=== PATIENT | female | born 1950 | race Caucasian/White ===

== ENCOUNTER → 2018-01-23 15:18 | Outpatient (CLI) | payer MEDICARE, SELFPAY ==
--- NOTE | 2018-01-23 15:24 | HPBI_ITS ---
MAMMOGRAPHY - BILATERAL SCREENING REASON FOR EXAM: Female, 67 years old. Routine annual screening examination. PERTINENT HISTORY: Prior bilateral stereotactic breast biopsies. Prior left excisional breast biopsy. TECHNIQUE: Digital bilateral breast mia (3D mammographic acquisition) in the CC and MLO projections. 2-D mediolateral oblique (MLO) and craniocaudad (CC) views of both breasts were obtained. CAD: Full Field Digital Mammography with Computer Added Detection was performed. COMPARISON: Comparison is made with prior study dated January 02, 2017 and December 14, 2015. FINDINGS: Breast Composition: There are scattered areas of fibroglandular density. There are no dominant masses or suspicious calcifications. Stable 1 cm well-defined nodular density with peripheral calcification in the superior retroareolar region of the left breast. Stable asymmetry of breast tissue when more breast tissue is seen in the superior lateral portion of left breast as compared to the right side. 2 tissue markers are once again seen in the superior retroareolar region of the left breast. Stable calcified fibroadenoma in the axillary portion of the left breast. No other significant abnormalities are identified. There has been no significant change since the prior study. HPBI/SCREENING MAMM (CAD), BILAT IMPRESSION: Stable bilateral screening mammogram. Yearly follow-up mammogram recommended. (A) ASSESSMENT CATEGORY: BIRADS Category 2: Benign. A letter regarding these results will be sent to the patient by the facility within 30 days. Approximately 10% of breast cancers are not detected by mammography. A normal mammogram should not delay biopsy of a clinically suspicious abnormality. [id number] Electronically Signed: Kael Henry MD at 8:11 EDT Tel [phone], Service support ,
== END ==
PROVIDERS: Family Provider Internal Medicine; PCP Internal Medicine; Visit Provider Internal Medicine
DX: Z12.31 Encounter for screening mammogram for malignant neoplasm of breast (principal)
CPT/HCPCS: 77063; 77067

== ENCOUNTER → 2019-03-09 | Outpatient (CLI) | payer MEDICARE, SELFPAY ==
--- NOTE | 2019-03-09 07:57 | BI_ITS ---
MAMMOGRAPHY - BILATERAL SCREENING 3-D TOMOSYNTHESIS REASON FOR EXAM: Female, 68 years old. Bilateral Screening 3-D tomosynthesis PERTINENT HISTORY: No significant family history. TECHNIQUE: 2-D mammograms and 3-D Tomosynthesis of the breast (s) were performed. CAD was performed. COMPARISON: January 23, 2018. FINDINGS: The breast composition is composed of scattered fibroglandular density. Scattered benign calcifications are seen. No dense spiculated masses or suspicious microcalcifications are identified. No architectural distortion is identified. There is no skin thickening or retraction. There has been no significant change since the prior study. BI/SCREENING MAMM (CAD), BILAT IMPRESSION: No mammographic signs of malignancy. Routine yearly mammograms recommended. ASSESSMENT CATEGORY: BIRADS Category 2: Benign. A letter regarding these results will be sent to the patient by the facility within 30 days. FOLLOW UP RECOMMENDATION: Yearly follow up mammogram recommended. (A) Approximately 10% of breast cancers are not detected by mammography. A normal mammogram should not delay biopsy of a clinically suspicious abnormality. Electronically Signed: Bob Gomez MD at 12:20 EDT , Service support ,
== END | disposition home or self-care (01) ==
LOC: OPBI 07:56
PROVIDERS: Family Provider Internal Medicine; PCP Internal Medicine; Referring Provider Internal Medicine; Visit Provider Internal Medicine
DX: Z12.31 Encounter for screening mammogram for malignant neoplasm of breast (principal)
CPT/HCPCS: 77063; 77067

== ENCOUNTER → 2019-08-16 09:45 | Outpatient (CLI) | payer MEDICARE, SELFPAY ==
--- NOTE | 2019-08-16 09:49 | ECHOD_ITS ---
Reason For Study: AV Disorder Procedure This was a 2D Doppler, Color Flow transthoracic echocardiogram. Exam performed in department. Left Ventricle Normal LV size. Left ventricular systolic function is normal. The estimated ejection fraction is 55 %. Stage 2 diastolic dysfunction. No regional wall motion abnormalities noted. Right Ventricle Normal RV size. Normal systolic function. Atria The left atrium is mildly enlarged. Normal right atrium. Mitral Valve Normal mitral valve. Mild (1+) eccentric mitral valve insufficiency. Tricuspid Valve Normal tricuspid valve. Mild (1+) tricuspid valve insufficiency. Pulmonary artery systolic pressure is 34 mmHg. Aortic Valve Trisinus/trileaflet aortic valve. Trivial aortic valve insufficiency. Pulmonic Valve Normal pulmonic valve. Great Vessels Normal aortic root. The pulmonary artery is normal size. Normal inferior vena cava. Pericardium/Pleural No pericardial effusion. MMode/2D Measurements & Calculations LVIDd: 4.4 cm IVSd: 1.1 cm Ao root diam: 2.6 cm LVIDs: 2.8 cm LVPWd: 1.00 cm RVDd: 2.5 cm FS: 37.1 % LAV(MOD-bp): 60.9 ml LVAd ap4: 24.3 cm2 SV(MOD-sp4): 43.3 ml LAV(MOD-bp) Indexed: 33.1 ml/m2 EDV(MOD-sp4): 67.3 ml LAV(MOD-sp2): 50.6 ml EDV(sp4-el): 69.5 ml LAV(MOD-sp4): 69.7 ml LVAs ap4: 12.9 cm2 ESV(MOD-sp4): 24.0 ml ESV(sp4-el): 23.4 ml EF(MOD-sp4): 64.3 % EF(sp4-el): 66.3 % SV(sp4-el): 46.1 ml LA A4 area: 22.0 cm2 LA dimension(2D): 4.4 cm RA A4 area: 11.1 cm2 Doppler Measurements & Calculations MV E max reg: 90.6 cm/sec Lat Peak E' Reg: 10.2 cm/sec Med Peak E' Reg: 7.7 cm/sec MV A max reg: 102.5 cm/sec E/E' lat: 8.9 E/E' med: 11.7 MV E/A: 0.88 Ao V2 max: 190.7 cm/sec AI max reg: 415.2 cm/sec LV V1 max: 134.0 cm/sec Ao max P.5 mmHg AI max P.1 mmHg LV V1 max P.2 mmHg Ao V2 mean: 126.3 cm/sec Ao mean P.2 mmHg AI dec slope: 171.5 cm/sec2 Ao V2 VTI: 43.4 cm AI P1/2t: 709.0 msec PA V2 max: 123.3 cm/sec TR max reg: 272.1 cm/sec TR max P.6 mmHg Interpretation Summary Normal LV size. Left ventricular systolic function is normal. The estimated ejection fraction is 55 %. Stage 2 diastolic dysfunction. Mild (1+) eccentric mitral valve insufficiency. Mild (1+) tricuspid valve insufficiency. Trivial aortic valve insufficiency. Ordering Physician: Irish Bee Referring Physician: Irish Bee Performed By: Micki Braxton, LUZ ELENA, RVT
== END ==
PROVIDERS: Family Provider Internal Medicine; PCP Internal Medicine; Referring Provider Internal Medicine; Visit Provider Internal Medicine
DX: R06.02 Shortness of breath (principal); I35.9 Nonrheumatic aortic valve disorder, unspecified; I34.1 Nonrheumatic mitral (valve) prolapse; G47.33 Obstructive sleep apnea (adult) (pediatric)
CPT/HCPCS: 93306

== ENCOUNTER → 2019-09-21 13:56 | Outpatient (CLI) | payer MEDICARE, SELFPAY ==
--- NOTE | 2019-09-21 14:01 | BD_ITS ---
STUDY: DUAL ENERGY X-RAY ABSORPTIOMETRY / DXA REASON FOR EXAM: Female, 68 years old. Early menopause. Loss of height. TECHNIQUE: Bone Mineral Density (BMD) measurements of lumbar spine and bilateral hips were obtained. COMPARISON: Comparison is made with prior study July 08, 2017. FINDINGS: Lumbar Spine (L1-L4): g/cm2 (1.065) / T-score (-1.1) / Z-score (0.5) Findings are suggestive of osteopenia with a low fracture risk. Increased thoracic kyphosis. Left Femur Total: g/cm2 (0.944) / T-score (-0.5) / Z-score (0.9) Left Femoral Neck: g/cm2 (0.781) / T-score (-1.9) / Z-score (-0.2) Right Femur Total: g/cm2 (0.977) / T-score (-0.2) / Z-score (1.2) Right Femoral Neck: g/cm2 (0.819) / T-score (-1.6) / Z-score (0.1) The T-Scores on the most recent prior examination were: Lumbar Spine (L1-L4): There has been improvement of bone density since the previous examination. Left Femur Total: which represents a worsening of 0.7%. Right Femur Total: which represents a worsening of 0.6%. BD/Dexa Bone Density Study IMPRESSION: The patient is considered osteopenic as outlined below according to World Bharathi Organization (WHO) criteria with a moderate fracture risk. There has been worsening of bone density since the previous examination. Reference Information: The T-score is the number of standard deviations above or below the standard which is normal for young adults at their peak bone mineral density. The World Health Organization (WHO) interprets the T-scores as follows: Above -1 Normal bone density Between -1 and -2.5 Osteopenia Equal to / or below -2.5 Osteoporosis As a practical clinical guideline, osteopenia may be graded as follows: Mild -1 through -1.5 Moderate -1.6 through -2.0 Severe -2.1 through -2.4 The Z-score is the number of standard deviations above or below age-matched controls. A Z-score of less than -1.5 would be considered abnormal. References: 1. NIH Osteoporosis and Related Bone Diseases http://www.osteo.org 2. International Society for Clinical Densitometry http://www.iscd.org 3. National Osteoporosis Foundation http://www.nof.org Electronically Signed: Kael Henry, at 9:37 EST , Service support ,
== END ==
PROVIDERS: Family Provider Internal Medicine; PCP Internal Medicine; Referring Provider Internal Medicine; Visit Provider Internal Medicine
DX: Z78.0 Asymptomatic menopausal state (principal)
CPT/HCPCS: 77080

== ENCOUNTER 2019-10-29 10:19 | Observation (INO) | payer MEDICARE, SELFPAY ==
[2019-10-29 10:20] VITALS: BP 163/90; PULSE 58; RESP 18; TEMP 36.6; O2SAT 99; BMI 34.7
--- NOTE | 2019-10-29 10:50 | CT_ITS ---
STUDY: CT BRAIN WITHOUT CONTRAST REASON FOR EXAM: Female, 68 years old. Nausea. Vertigo. RADIATION DOSAGE (If Supplied By Facility): CTDIvol = ( 44.99 ) mGy, DLP = ( 762.36 ) mGycm TECHNIQUE: Transaxial CT imaging of the brain was performed without administration of intravenous contrast material. Individualized dose optimization techniques were used for this CT. COMPARISON: Comparison is made with prior study dated November 18, 2015. FINDINGS: Normal soft tissue structures. Normal calvarium. There is mild cerebral atrophy with widening of the extra-axial spaces and ventricular dilatation. Focal encephalomalacia in the region of the right temporal lobe suggestive of old ischemic change. Normal basal ganglia and thalami. Normal brainstem. Normal cerebellum. There is no intracranial hemorrhage. There are no findings of an acute ischemic infarction. Partial opacification of the right axillary sinus. CT/Brain/Head without Contrast IMPRESSION: Chronic involutional changes of the brain. Partial opacification of the right maxillary sinus. Electronically Signed: Kael Henry, at 12:34 EST , Service support ,
--- NOTE | 2019-10-29 10:51 | EKG12_ITS ---
Test Reason : DIZZINESS Blood Pressure : / mmHG Vent. Rate : 054 BPM Atrial Rate : 054 BPM P-R Int : 136 ms QRS Dur : 092 ms QT Int : 450 ms P-R-T Axes : 004 020 024 degrees QTc Int : 426 ms Sinus bradycardia Otherwise normal ECG Confirmed by BUZZ MERCADO ([id number]), editorial writer BRENNA KIM ([id number]) on 11/03/2019 1:08:04 PM Referred By: Anay Manzano Confirmed By:BUZZ MERCADO
[2019-10-29 11:33] LABS: Absolute Lymphocyte Count 1.05 X10^3/uL (0.83-4.51); Basophil# 0.01 X10^3/uL; Basophil% 0.1 % (0-1); Eosinophil# 0.03 X10^3/uL; Eosinophils% 0.4 % (0-5); Hematocrit 36.9 % (37-47); Hemoglobin 11.6 g/dL (12.0-15.0); Lymphocyte # 1.05 X10^3/ul (4.0); Mean Corp Hgb Conc 31.4 g/dL (32-36); Mean Corpuscular Hgb 26.5 pg (27.0-32.0); Mean Corpuscular Volume 84.2 fL (81-99); Mean Platelet Vol. 11.2 fl (6.2-12.0); Monocyte# 0.42 X10^3/uL; Monocyte% 5.6 % (0-10); NRBC Flagged by Analyzer 0 % (0-5); Neutrophil # 5.98 X10^3/uL (2.7-7.7); Neutrophil % 79.5 % (47-70); Platelet Count 301 K/mm3 (150-450); RBC Distribution Width CV 15.4 % (11.6-14.6); RBC Distribution Width SD 47.3 fl (35.1-43.9); Red Blood Count 4.38 M/mm3 (4.2-5.4); White Blood Count 7.5 K/mm3 (4.4-11.0)
[2019-10-29 11:50] LABS: Anion Gap 6 (5-15); BUN 11 mg/dL (7-18); BUN/Creat Ratio 18.7 RATIO (10-20); Calcium,Total 9.2 mg/dL (8.5-10.1); Chloride 108 mmol/L (98-107); Creatinine, Serum 0.59 mg/dL (0.55-1.02); EST Glomerular Filtration Rate 108 mL/min (>60); Est Glom Filt Rate - Afr Amer 130 mL/min (>60); Estimated Creatinine Clearance 38.14 ml/min; Glucose 119 mg/dL (74-106); Potassium 3.9 mmol/L (3.5-5.1); Sodium Level 142 mmol/L (136-145)
[2019-10-29] MEDS: Ondansetron 4 MG/2 ML Vial IV (12:03)
[2019-10-29] MEDS: 0.9% Normal Saline 1,000 ML 150 ML IV (12:03)
[2019-10-29] MEDS: Morphine 4 MG/ML Syringe IV (12:04)
[2019-10-29] MEDS: Meclizine HCl 25 MG Tablet PO ×2 (12:04→22:13)
--- NOTE | 2019-10-29 12:41 | ED.DCSUM_ITS ---
- ER Visit Summary Date of Service: 10/29/19 Chief Complaint: Vertigo History of Present Illness: The patient is a [address] Mccray. Reports that at 630 this morning she had the abrupt onset of vertigo when she sat up in bed. She described this as the room spinning. She reports it makes her nause ous and she has had dry heaves. No diaphoresis with this. Is increased with movement or light. She denies any ringing or roaring in her ears. No ear pain. No change in her hearing. No slurred speech or double vision. Denies any focal weakness or numbness. Patient also reports she has a headache is 510 severity that began at the same time. She describes this as a throbbing diffuse pain she has not had similar headaches previously. Physical Examination: Vitals: Stable. Afebrile. General: Well-nourished and well-developed. Head: Normocephalic atraumatic. HEENT: TMs are within normal limits bilaterally. Neck: Supple, no lymphadenopathy. No JVD. Nontender. Cardiovascular: Regular rate and rhythm. No murmurs. Respiratory: No respiratory distress. Clear to auscultation bilaterally. Abdominal: Soft, nontender, nondistended, normal bowel sounds. No guarding, rebound, or peritoneal signs. Back: Nontender. Extremities: Nontender, no edema. Skin: Normal color, no rash. Neurologic: Alert and oriented ?3. Cranial nerves II through XII are intact. Normal strength and sensation. Normal bwgzlm-kcyy-jgwfeq and jsfz-mniw-mvoy bilaterally. She does have nystagmus with gaze to the left. Psych: Normal affect. Test Results: EKG is sinus bradycardia 54 with no acute changes. CBC shows an H&H 11.6 and 36.9, segmented was 80, lymphs at 14. Chem-7 shows a chloride 108 glucose 119. Clinical Impression(s) from Imaging Studies Brain CT 10/29/19 10:50 IMPRESSION: Chronic involutional changes of the brain. Partial opacification of the right maxillary sinus. Electronically Signed: Kael Henry, at 12:34 EST , Service support , Emergency Department Course and Treatment: Patient was treated with Antivert and Zofran. She is resting comfortably. Her NIH scale has been 0 while she is here. She ambulated in the emergency department and was quite unsteady and still is experiencing vertigo. Treatment Plan: Patient will be discussed with the hospitalist and admitted for further evaluation and treatment. Disposition: Admitted in stable condition. Impression: 1. Vertigo. 2. Sinus bradycardia. This note was generated with [employer] dictation software. It may contain incorrect words, spelling, and punctuation that were not noted in review of the chart prior to signing ED Disposition - Plan for ED Patient: Instructions: DIZZINESS, Unk Cause Prescriptions: Meclizine HCl [Antivert] 25 mg PO 4X/DAY PRN PRN #20 tab PRN Reason: Dizziness Prescription Printed Ondansetron [Zofran Odt] 4 mg PO Q8H PRN PRN #10 tab PRN Reason: Nausea Prescription Printed Referrals: Irish Bee DO [Primary Care Provider] - 1-2 Days if not improving
[2019-10-29 13:11] VITALS: BP 163/73; PULSE 56; RESP 18; O2SAT 100
[2019-10-29 14:26] VITALS: BMI 34.5
[2019-10-29 14:33] VITALS: BP 167/72; PULSE 55; RESP 17; TEMP 36.7; O2SAT 100
[2019-10-29] MEDS: 0.9% Normal Saline 1,000 ML 100 ML IV (14:47)
[2019-10-29] MEDS: 0.9% Saline Lock 10 ML Syringe IV (14:47)
[2019-10-29 15:26] LABS: Hemoglobin A1c 6.2 % (4.2-6.3)
[2019-10-29 15:28] LABS: Magnesium 2.1 mg/dL (1.6-2.6)
[2019-10-29 15:30] VITALS: O2SAT 100
[2019-10-29 16:05] VITALS: BP 120/55; BP 120/66; BP 140/69; PULSE 72; PULSE 75; PULSE 76
[2019-10-29 17:06] LABS: Bedside Glucose 144 mg/dL (70-110)
[2019-10-29] MEDS: metFORMIN (XR) 500 MG Tablet 1000 MG PO (17:59)
[2019-10-29 20:15] VITALS: BP 115/61; PULSE 63; RESP 16; TEMP 36.6; O2SAT 95
--- NOTE | 2019-10-29 21:44 | HP.PCM_ITS ---
Problem List (1) Vertigo Status: Acute (2) Hyperlipidemia Status: Chronic (3) Hypertension Status: Chronic (4) Type II diabetes mellitus Status: Chronic (5) Osteoarthritis Status: Acute (6) CVA (cerebral vascular accident) Status: Acute (7) Depression Status: Acute History of Present Illness Date of Admission: 10/29/19 Chief Complaint: vertigo associated with nausea and trouble ambulating The patient is a 68 year old F with a past medical history of hypertension, depression, diabetes mellitus type 2, osteoarthritis, osteoporosis, hyperlipidemia and vertigo who presented to the emergency department at [facility] on 10/29/2019 complaining of vertigo. When she awoke this morning she had abrupt onset of vertigo when she first sat up in bed. She stated the room was spinning. She had nausea but denied any emesis. The vertigo increased with movements of her head. She denied any sore throat, ear pain, lightheadedness, fevers, chills, visual disturbances. She had no unilateral weakness or numbness. She has had this in the past and it got better with ANtivert. Vital signs at presentation to the emergency room were temperature 97.9, pulse rate 79, blood pressure blood pressure 163/90, respiratory rate 18 and she was 99% saturated on room air. CBC showed a white blood cell count of 7.5. Hemoglobin was 11.6 with an MCV of 84.2. BMP was unremarkable. Hemoglobin A1c is 6.2, magnesium is 2.1 and the TSH was 1.5. A noncontrasted CT brain showed chronic involutional changes of the brain with partial opacification of the right maxillary sinus. She was ambulated in the emergency department and was quite unsteady. She lives by herself and therefore she is being admitted to the hospital with a diagnosis of vertigo, more likely than not secondary to benign positional vertigo. Past Medical History Past Medical History (Chronic Problems): Chronic Problems Hyperlipidemia (Chronic) Hypertension (Chronic) Type II diabetes mellitus (Chronic) Allergies latex Allergy (Verified 10/29/19 10:22) Hives Home Medications: Ambulatory Orders Medication Instructions Recorded Calcium Carb/Vitamin D 1 tab PO DAILY@0800 11/18/15 [Caltrate-600 With Vit D Tab] Metoprolol(XL)Succ [Toprol Xl 50 mg PO DAILY 11/18/15 (Beta Ana M)] Pravastatin [Pravachol] 80 mg PO DAILY 11/18/15 Alendronate Sodium [Fosamax] 70 mg PO SA 02/27/17 Losartan Potassium [Cozaar] 100 mg PO DAILY 02/27/17 Aspirin E.C. [Ecotrin] 81 mg PO DAILY@0800 10/29/19 Cholecalciferol (Vitamin D3) 2,000 unit PO DAILY 10/29/19 [Vitamin D3] Citalopram [Celexa] 20 mg PO DAILY 10/29/19 Ferrous Sulfate 325 mg PO DAILY 10/29/19 Metformin HCl [Metformin HCl ER] 1,000 mg PO BID 10/29/19 Metoprolol Succinate [Toprol Xl] 25 mg PO DAILY 10/29/19 [place]-3 Fatty Acids/Fish Oil [Fish 1 cap PO BID 10/29/19 Oil 1,000 mg Capsule] Omeprazole 40 mg PO DAILY 10/29/19 Pentoxifylline 400 mg PO DAILY 10/29/19 Sitagliptin Phosphate [Januvia] 100 mg PO DAILY 10/29/19 Turmeric Root Extract [Turmeric] 500 mg PO BID 10/29/19 Surgical History: noncontributory, appendectomy - 1992, hysterectomy - 1992, total knee arthroplasty - [address] wOen Nichols, tonsillectomy - 1957 Psychiatric History: No pertinent psych hx [employer] History: No pertinent [employer] history Lives: Alone Smoking Status: Never smoker Tobacco Use: Non-smoker, Secondhand Alcohol: None Drugs: None - *Family History Maternal History Items: No pertinent history Paternal History Items: No pertinent history Review of Systems Constitutional: Denies: Anorexia, Chills, Fever, Weakness, Weight Change Eyes: Denies: Blurred vision, Double vision HEENT: Reports: - - Vertigo with the room spinning. Denies: Difficulty Swallowing, Head Aches, Nasal Congestion, Sinus Congestion, Sinus Drainage, Sore Throat Cardiovascular: Denies: Chest Pain, Light Headedness, Palpitations Respiratory: Denies: Cough, Shortness of Breath, Shortness of breath at rest, Shortness of breath upon exertion, Sputum production Gastrointestinal: Reports: Nausea. Denies: Abdominal Pain, Vomiting Genitourinary: Denies: Dysuria Gynecological: Denies: Breast symptoms, Vaginal discharge Musculoskeletal: Denies: Joint Pain, Joint Tenderness Skin: Denies: Rash, Wounds Neurological: Reports: Balance problems - Secondary to acute onset of vertigo this morning. Denies: Blurred vision, Double vision, Change in Speech, Slurred speech, Confusion, Focal weakness, Numbness, Tingling, Seizures Psychiatric: Reports: Depression. Denies: Anxiety, Homicidal Ideations, Suicidal Ideations Endocrine: Denies: Change in Body Habitus Hematologic/ Lymphatic: Denies: Easy Bruising, Easy Bleeding, Hx of blood clot VTE Information - Inpt Only VTE Present on Admission: No VTE Mechan Device Prophylaxis: None VTE Pharm Prophylaxis ordered?: No Reason prophylaxis not ordered:: Treatment Not Indicated - Short admission anticipated Patient Problems: Active and Suspected Problems Osteoarthritis (Acute) CVA (cerebral vascular accident) (Acute) Depression (Acute) - Physical Exam Vitals/I&O's: Vital Signs Temp Pulse Resp BP Pulse Ox 98 F 63 16 115/61 95 10/29/19 20:15 10/29/19 20:15 10/29/19 20:15 10/29/19 20:15 10/29/19 20:15 Oxygen Delivery Method Room Air Weight: 177 lb 0.499 oz Body Mass Index (BMI) 34.5 Finger Stick Blood Glucose 128 Orthostatic Vital Signs Start: 10/29/19 16:06 Freq: q24h Status: Active Protocol: Activity Type Activity Date Activity User E-Sign Co-Sign Detail Recorded Client Recorded Date Recorded By Document 10/29/19 16:05 [facility] [id number] 10/29/19 16:09 [facility] [place]/29[place] 16:05 Orthostatic Vitals Standing -Blood Pressure (90/60-120/80 mm Hg) 140/69 H -Extremity Use Left Arm -Pulse Rate (60-100 beats/min) 76 Sitting -Blood Pressure (90/60-120/80 mm Hg) 120/66 -Extremity Use Left Arm -Pulse Rate (60-100 beats/min) 75 Lying -Blood Pressure (90/60-120/80 mm Hg) 120/55 L -Extremity Use Left Arm -Pulse Rate (60-100 beats/min) 72 Intake and Output for Last 24 Hours 10/27/19 10/28/19 10/29/19 23:59 23:59 23:59 Intake Total 1300 / 1300 Balance 1300 / 1300 General: Alert, Oriented x3, Cooperative, - - she has sensitivity of her eyes to the light HEENT: Atraumatic, PERRLA, EOMI, Normocephalic, TM's Clear Oral: Dry Mucosa Neck: Supple, Negative Carotid Bruits, No Nodes, Trachea Midline Lungs: Clear to auscultation, Normal air movement Cardiovascular: Regular rate, Regular Rhythm, Normal S1, Normal S2, No murmurs, No Ectopic Activity, No rub noted, No Gallop Abdomen: Bowel Sounds Present, Soft, Non Tender, Non-Distended Extremities: No clubbing, No cyanosis, No edema Skin: No rashes Neurological: Cranial nerves II-XII grossly intact, Neuro grossly intact, - - NIH is 0 Psych/Mental Status: Normal Affect, Appropriate Laboratory Results 10/29/19 11:20: WBC 7.5, RBC 4.38, Hgb 11.6 L, Hct 36.9 L, MCV 84.2, MCH 26.5 L, MCHC 31.4 L, RDW Std Deviation 47.3 H, RDW Coeff of Jose Martin 15.4 H, Plt Count 301, MPV 11.2, Immature Gran % (Auto) 0.400, Neut % (Auto) 79.5 H, Lymph % (Auto) 14.0 L, [place] % (Auto) 5.6, Eos % (Auto) 0.4, Baso % (Auto) 0.1, Absolute Neuts (auto) 6.0, Absolute Lymphs (auto) 1.05, Nucleated RBC % 0 10/29/19 11:20: Sodium 142, Potassium 3.9, Chloride 108 H, Carbon Dioxide 28.0, Anion Gap 6, BUN 11, Creatinine 0.59, Estim Creat Clear Calc 38.14, Est GFR (MDRD) Af Amer 130, Est GFR (MDRD) Non-Af 108, BUN/Creatinine Ratio 18.7, Glucose 119 H, Calcium 9.2 10/29/19 11:20: Magnesium 2.1, TSH 1.50 10/29/19 11:20: Hemoglobin A1c 6.2 10/29/19 17:01: POC Glucose 144 H Current Medications Acetaminophen (Tylenol) 650 mg PO Q6H PRN PRN PRN Reason: Pain Score 1-3/Temp > 100.7 F Glucagon () 1 mg IM .X1 PRN PRN Reason: Hypoglycemia Sodium Chloride () 1,000 mls @ 100 mls/hr IV .Q10H [facility] Stop: 10/30/19 10:37 Last Admin: 10/29/19 14:47 Dose: 100 mls/hr Documented by: Dextrose (Dextrose 10%-Water) 250 mls @ 999 mls/hr IV X1 PRN; Protocol PRN Reason: HYPOGLYCEMIA Losartan Potassium (Cozaar) 100 mg PO DAILY [facility] Meclizine HCl (Antivert) 25 mg PO Q8H [facility] Last Admin: 10/29/19 15:00 Dose: Not Given Documented by: Melatonin (Melatonin) 3 mg PO QHS PRN PRN PRN Reason: INSOMNIA Metformin HCl (Glucophage Xr) 1,000 mg PO BIDCM [facility] Last Admin: 10/29/19 17:59 Dose: 1,000 mg Documented by: Metoprolol Succinate (Toprol Xl (Beta Ana M)) 75 mg PO DAILY [facility] Ondansetron HCl (Zofran) 4 mg IV Q8H PRN PRN PRN Reason: NAUSEA/VOMITING Oxycodone HCl (Oxyir) 5 mg PO Q4H PRN PRN PRN Reason: Pain Score 4-5/10 Pantoprazole Sodium (Protonix) 40 mg PO DAILY [facility] Pravastatin Sodium (Pravachol) 80 mg PO HS [facility] Prochlorperazine Edisylate (Compazine Iv) 5 mg IV Q4H PRN PRN PRN Reason: Breakthrough nausea/vomiting Sodium Chloride () 10 - 40 ml IV UD PRN PRN Reason: SALINE FLUSH Last Admin: 10/29/19 14:47 Dose: 10 ml Documented by: Assessment/Plan All Active Problems Osteoarthritis (Acute) CVA (cerebral vascular accident) (Acute) Depression (Acute) Vertigo (Acute) Impressions 1. Acute, sudden onset of vertigo with a history of vertigo in the past that improved with Antivert. CT brain shows no acute findings. Antivert has been ordered every 8 hours. Will reassess ambulation in the a.m. 2. mild dehydration - IV fluids ordered. 3. Bradycardia - asymptomatic and she is on a beta ana m. Will continue 4. Diabetes mellitus type 2 - very well controlled 5. HLD 6. Osteoarthritis 7. Remote history of a CVA when she was in her 20s. 8. Hypertension Code Visit OBSV E&M: 22897 Initial observation care L2
[2019-10-29 22:20] LABS: Bedside Glucose 87 mg/dL (70-110)
[2019-10-30] MEDS: 0.9% Normal Saline 1,000 ML 100 ML IV (00:30)
[2019-10-30 02:14] VITALS: BP 130/52; PULSE 65; RESP 16; TEMP 36.7; O2SAT 98
[2019-10-30 02:15] VITALS: BP 130/52; BP 136/60; BP 153/69; PULSE 64; PULSE 65; PULSE 71
[2019-10-30] MEDS: Meclizine HCl 25 MG Tablet PO (05:41)
[2019-10-30 06:30] LABS: Bedside Glucose 108 mg/dL (70-110)
[2019-10-30 06:56] LABS: Hematocrit 32.9 % (37-47); Mean Corp Hgb Conc 30.4 g/dL (32-36); Mean Corpuscular Hgb 26.3 pg (27.0-32.0); Mean Corpuscular Volume 86.6 fL (81-99); Mean Platelet Vol. 11.9 fl (6.2-12.0); Platelet Count 187 K/mm3 (150-450); RBC Distribution Width CV 15.9 % (11.6-14.6); RBC Distribution Width SD 50.1 fl (35.1-43.9); White Blood Count 6.4 K/mm3 (4.4-11.0)
[2019-10-30 07:28] VITALS: BP 149/68; PULSE 68; RESP 18; TEMP 37.1; O2SAT 98
[2019-10-30 07:30] VITALS: PULSE 70
[2019-10-30 07:42] LABS: ALB/GLOB Ratio 0.9 RATIO (0.9-2.4); AST(SGOT) 14 U/L (15-37); Alanine Aminotransfer ALT/SGPT 17 U/L (13-56); Albumin, Serum 2.8 g/dL (3.2-5.0); Alkaline Phosphatase 45 U/L (45-117); Anion Gap 4 (5-15); BUN 9 mg/dL (7-18); BUN/Creat Ratio 15.4 RATIO (10-20); Calcium,Total 7.6 mg/dL (8.5-10.1); Chloride 112 mmol/L (98-107); Creatinine, Serum 0.58 mg/dL (0.55-1.02); EST Glomerular Filtration Rate 108 mL/min (>60); Est Glom Filt Rate - Afr Amer 131 mL/min (>60); Estimated Creatinine Clearance 38.14 ml/min; Globulin 3.2 g/dL (2.2-4.2); Glucose 120 mg/dL (74-106); Phosphorus 3.2 mg/dL (2.5-4.9); Sodium Level 142 mmol/L (136-145)
[2019-10-30] MEDS: Losartan Potassium 100 MG Tablet PO (07:54)
[2019-10-30] MEDS: Pantoprazole Sodium 40 MG Tablet PO (07:54)
[2019-10-30 07:55] VITALS: PULSE 70
[2019-10-30] MEDS: Metoprolol(XL)Succ 50 MG Tablet 75 MG PO (07:55)
[2019-10-30] MEDS: metFORMIN (XR) 500 MG Tablet 1000 MG PO (09:56)
--- NOTE | 2019-10-30 10:28 | PCM.DC ---
- Discharge Diagnoses Current Active Problems: Current Active and Chronic Problems Osteoarthritis (Acute) CVA (cerebral vascular accident) (Acute) Depression (Acute) You will use the following diet at home:: Calorie/Carbohydrate Controlled (specify 1200, 1400, etc) - 1800 magdy., Cardiac Your food should be the consistency of: Regular Discharge Activity: Return to Normal Activity Weight Bearing Status: Weight bearing as tolerated Call your doctor if you observe: Fever of 101 or Higher, Shortness of breath, Dizziness, Fainting spells, Chest pain, Increased palpitations (irregular heartbeat), Uncontrolled pain Instructions: DIZZINESS, Unk Cause Allergies/Adverse Reactions: Allergies latex Allergy (Verified 10/29/19 10:22) Hives Medications to take at Discharge Calcium Carb/Vitamin D [Caltrate-600 With Vit D Tab] 1 tab PO DAILY@0800 11/18/15 Metoprolol(XL)Succ [Toprol Xl (Beta Ana M)] 50 mg PO DAILY 11/18/15 Pravastatin [Pravachol] 80 mg PO DAILY 11/18/15 Alendronate Sodium [Fosamax] 70 mg PO SA 02/27/17 Losartan Potassium [Cozaar] 100 mg PO DAILY 02/27/17 Aspirin E.C. [Ecotrin] 81 mg PO DAILY@0800 10/29/19 Cholecalciferol (Vitamin D3) [Vitamin D3] 2,000 unit PO DAILY 10/29/19 Citalopram [Celexa] 20 mg PO DAILY 10/29/19 Ferrous Sulfate 325 mg PO DAILY 10/29/19 Metformin HCl [Metformin HCl ER] 1,000 mg PO BID 10/29/19 Metoprolol Succinate [Toprol Xl] 25 mg PO DAILY 10/29/19 [place]-3 Fatty Acids/Fish Oil [Fish Oil 1,000 mg Capsule] 1 cap PO BID 10/29/19 Omeprazole 40 mg PO DAILY 10/29/19 Pentoxifylline 400 mg PO DAILY 10/29/19 Sitagliptin Phosphate [Januvia] 100 mg PO DAILY 10/29/19 Turmeric Root Extract [Turmeric] 500 mg PO BID 10/29/19 Meclizine HCl [Antivert] 25 mg PO Q8H PRN #14 tab 10/30/19 The following prescriptions were given: Meclizine HCl [Antivert] 25 mg PO Q8H PRN #14 tab PRN Reason: Vertigo Transmission Status: [id number] Primary Care Physician: Irish Bee, [Primary Care Provider] - 1-2 Days if not improving Please follow up with your Primary Care Physician in: 1-2 weeks. Test Results: Test results from this visit will be discussed in further detail at your follow-up appointment, if applicable.
--- NOTE | 2019-10-30 11:36 | PCM.DC.SUM ---
Discharge Date and Diagnosis Date of Admission: 10/29/19 Date of Discharge: 10/30/19 - Primary Discharge Diagnosis Active and Suspected Problems Vertigo attributed to paroxysmal benign positional vertigo. - Secondary Discharge Diagnosis Chronic Problems Hyperlipidemia (Chronic) Hypertension (Chronic) Type II diabetes mellitus (Chronic) Hospital Course and Treatment Imaging Results: Clinical Impression(s) from Imaging Studies Brain CT 10/29/19 10:50 IMPRESSION: Chronic involutional changes of the brain. Partial opacification of the right maxillary sinus. Electronically Signed: Kael Henry, at 12:34 EST , Service support , Operations: None Procedures: EKG Summary of Care Provided: Patient seen and examined on the day of discharge and appeared to be stable to be discharged home. Today, she is feels better, no more spinning sensation or dizziness. Her vital signs are stable. Denied any other symptoms. The patient is a 68 year old F patient presented to the emergency room because of dizziness with nausea and trouble ambulating. She described the dizziness as spinning sensation associated with nausea and has been having difficulty ambulating because of the vertigo. She had no other symptoms suggestive of acute stroke. CT scan brain showed no acute findings. Her vital signs were stable. Her EKG revealed normal sinus rhythm without evidence of acute ischemic changes or cardiac arrhythmias. Routine blood work was remarkable for chronic anemia, otherwise normal. Patient was states with IV fluids and meclizine. Symptoms improved. Today, she was ambulated with nursing staff and she did very well. Denies any more dizziness or vertigo. Patient discharged home in a stable medical condition, discharged on meclizine as needed for vertigo, continued on her previous home medications without any changes, recommended follow-up with PCP in 1 to 2 weeks. - Physical Exam Vitals/I&O's: Vital Signs Temp Pulse Resp BP Pulse Ox 98.8 F 70 18 149/68 H 98 10/30/19 07:28 10/30/19 07:55 10/30/19 07:28 10/30/19 07:28 10/30/19 07:28 Oxygen Delivery Method Room Air Weight: 177 lb 0.499 oz Body Mass Index (BMI) 34.5 Finger Stick Blood Glucose 128 Orthostatic Vital Signs Start: 10/29/19 16:06 Freq: q24h Status: Active Protocol: Activity Type Activity Date Activity User E-Sign Co-Sign Detail Recorded Client Recorded Date Recorded By Document 10/30/19 02:15 [facility] [id number] 10/30/19 02:16 [facility] 10/30/19 02:15 Orthostatic Vitals Standing -Blood Pressure (90/60-120/80) 153/69 H -Extremity Use Left Arm -Pulse Rate (60-100) 71 Sitting -Blood Pressure (90/60-120/80) 136/60 H -Extremity Use Left Arm -Pulse Rate (60-100) 64 Lying -Blood Pressure (90/60-120/80) 130/52 H -Extremity Use Left Arm -Pulse Rate (60-100) 65 Intake and Output for Last 24 Hours 10/28/19 10/29/19 10/30/19 23:59 23:59 23:59 Intake Total 1300 / 1300 2571.67 / 2571.67 Balance 1300 / 1300 2571.67 / 2571.67 General: Alert, Oriented x3, Cooperative, No apparent distress HEENT: Atraumatic, PERRLA, EOMI, Normocephalic Oral: Moist Mucosa, No Gingival or Mucosal Lesions/ Ulcerations Neck: Supple, No JVD, Negative Carotid Bruits, Trachea Midline, Thyroid Normal Size and Texture Lungs: Clear to auscultation, Normal air movement, No rhonchi, No wheeze, No rales Cardiovascular: Regular rate, Regular Rhythm, Normal S1, Normal S2 Abdomen: Bowel Sounds Present, Soft, Non Tender, Non-Distended, No Hepato-splenomegaly Extremities: No clubbing, No cyanosis, No edema Skin: No rashes, No breakdown Musculoskeletal: No Tenderness to Palpation of Joints or Extremities Lymphatic: No Cervical, Supraclavicular, or Inguinal Adenopathy Neurological: Cranial nerves II-XII grossly intact, Neuro grossly intact Psych/Mental Status: Normal Affect, Appropriate Microbiology Past 72 Hours 10/30/19 07:45 Stool Stool Occult Blood (ROBERT) - Final Laboratory Results 10/29/19 11:20: Sodium 142, Potassium 3.9, Chloride 108 H, Carbon Dioxide 28.0, Anion Gap 6, BUN 11, Creatinine 0.59, Estim Creat Clear Calc 38.14, Est GFR (MDRD) Af Amer 130, Est GFR (MDRD) Non-Af 108, BUN/Creatinine Ratio 18.7, Glucose 119 H, Calcium 9.2 10/29/19 11:20: Magnesium 2.1, TSH 1.50 10/29/19 11:20: Hemoglobin A1c 6.2 10/29/19 17:01: POC Glucose 144 H 10/29/19 22:16: POC Glucose 87 10/30/19 06:21: WBC 6.4, RBC 3.80 L, Hgb 10.0 L, Hct 32.9 L, MCV 86.6, MCH 26.3 L, MCHC 30.4 L, RDW Std Deviation 50.1 H, RDW Coeff of Jose Martin 15.9 H, Plt Count 187, MPV 11.9 10/30/19 06:21: Sodium 142, Potassium 4.0, Chloride 112 H, Carbon Dioxide 26.0, Anion Gap 4 L, BUN 9, Creatinine 0.58, Estim Creat Clear Calc 38.14, Est GFR (MDRD) Af Amer 131, Est GFR (MDRD) Non-Af 108, BUN/Creatinine Ratio 15.4, Glucose 120 H, Calcium 7.6 L, Phosphorus 3.2, Magnesium 2.0, Total Bilirubin 0.20, AST 14 L, ALT 17, Alkaline Phosphatase 45, Total Protein 6.0 L, Albumin 2.8 L, Globulin 3.2, Albumin/Globulin Ratio 0.9 10/30/19 06:24: POC Glucose 108 Current Medications Acetaminophen (Tylenol) 650 mg PO Q6H PRN PRN PRN Reason: Pain Score 1-3/Temp > 100.7 F Glucagon () 1 mg IM .X1 PRN PRN Reason: Hypoglycemia Dextrose (Dextrose 10%-Water) 250 mls @ 999 mls/hr IV X1 PRN; Protocol PRN Reason: HYPOGLYCEMIA Losartan Potassium (Cozaar) 100 mg PO DAILY [facility] Last Admin: 10/30/19 07:54 Dose: 100 mg Documented by: Meclizine HCl (Antivert) 25 mg PO Q8H [facility] Last Admin: 10/30/19 05:41 Dose: 25 mg Documented by: Melatonin (Melatonin) 3 mg PO QHS PRN PRN PRN Reason: INSOMNIA Metformin HCl (Glucophage Xr) 1,000 mg PO BIDCM [facility] Last Admin: 10/30/19 09:56 Dose: 1,000 mg Documented by: Metoprolol Succinate (Toprol Xl (Beta Ana M)) 75 mg PO DAILY [facility] Last Admin: 10/30/19 07:55 Dose: 75 mg Documented by: Ondansetron HCl (Zofran) 4 mg IV Q8H PRN PRN PRN Reason: NAUSEA/VOMITING Oxycodone HCl (Oxyir) 5 mg PO Q4H PRN PRN PRN Reason: Pain Score 4-5/10 Pantoprazole Sodium (Protonix) 40 mg PO DAILY [facility] Last Admin: 10/30/19 07:54 Dose: 40 mg Documented by: Pravastatin Sodium (Pravachol) 80 mg PO [facility] Prochlorperazine Edisylate (Compazine Iv) 5 mg IV Q4H PRN PRN PRN Reason: Breakthrough nausea/vomiting Sodium Chloride () 10 - 40 ml IV UD PRN PRN Reason: SALINE FLUSH Last Admin: 10/29/19 14:47 Dose: 10 ml Documented by: Discharge Activity: Return to Normal Activity Weight Bearing Status: Weight bearing as tolerated Call your doctor if you observe: Fever of 101 or Higher, Shortness of breath, Dizziness, Fainting spells, Chest pain, Increased palpitations (irregular heartbeat), Uncontrolled pain Home Medications: Medications to take at Discharge Calcium Carb/Vitamin D [Caltrate-600 With Vit D Tab] 1 tab PO DAILY@0800 11/18/15 Metoprolol(XL)Succ [Toprol Xl (Beta Ana M)] 50 mg PO DAILY 11/18/15 Pravastatin [Pravachol] 80 mg PO DAILY 11/18/15 Alendronate Sodium [Fosamax] 70 mg PO SA 02/27/17 Losartan Potassium [Cozaar] 100 mg PO DAILY 02/27/17 Aspirin E.C. [Ecotrin] 81 mg PO DAILY@0800 10/29/19 Cholecalciferol (Vitamin D3) [Vitamin D3] 2,000 unit PO DAILY 10/29/19 Citalopram [Celexa] 20 mg PO DAILY 10/29/19 Ferrous Sulfate 325 mg PO DAILY 10/29/19 Metformin HCl [Metformin HCl ER] 1,000 mg PO BID 10/29/19 Metoprolol Succinate [Toprol Xl] 25 mg PO DAILY 10/29/19 [place]-3 Fatty Acids/Fish Oil [Fish Oil 1,000 mg Capsule] 1 cap PO BID 10/29/19 Omeprazole 40 mg PO DAILY 10/29/19 Pentoxifylline 400 mg PO DAILY 10/29/19 Sitagliptin Phosphate [Januvia] 100 mg PO DAILY 10/29/19 Turmeric Root Extract [Turmeric] 500 mg PO BID 10/29/19 Meclizine HCl [Antivert] 25 mg PO Q8H PRN #14 tab 10/30/19 Following Prescrptions Were Given to Patient: Meclizine HCl [Antivert] 25 mg PO Q8H PRN #14 tab PRN Reason: Vertigo Transmission Status: [id number] Primary Care Physician: Irish Bee DO [Primary Care Provider] - 1-2 Days if not improving Please follow up with your Primary Care Physician in: 1-2 weeks. Patient Instructions: DIZZINESS, Unk Cause Disposition: Home Minutes spent on discharge:: 25 Patient Condition:: Stable Medical Necessity - Tobacco Use Smoking Status: Never smoker Tobacco Use: Non-smoker, Secondhand Meaningful Use Info Meaningful Use Diagnoses (Choose all that apply): None applicable Code Visit OBSV E&M: 49414 Observation care discharge
[2019-10-30 12:51] LABS: Bedside Glucose 92 mg/dL (70-110)
== END 2019-10-30 12:50 | disposition home or self-care (01) ==
LOC: ED 11:07 → MS3 14:40
PROVIDERS: Admitting Provider Internal Medicine; Emergency Provider Emergency Medicine; Family Provider Internal Medicine; PCP Internal Medicine; Referring Provider Internal Medicine; Visit Provider Hospitalist
DX: H81.10 Benign paroxysmal vertigo, unspecified ear (principal); E78.5 Hyperlipidemia, unspecified; I10 Essential (primary) hypertension; Z79.899 Other long term (current) drug therapy; Z79.82 Long term (current) use of aspirin; R00.1 Bradycardia, unspecified; M19.90 Unspecified osteoarthritis, unspecified site; F32.9 Major depressive disorder, single episode, unspecified; E86.0 Dehydration; D64.9 Anemia, unspecified; E11.51 Type 2 diabetes mellitus with diabetic peripheral angiopathy without gangrene; G47.33 Obstructive sleep apnea (adult) (pediatric); Z86.73 Personal history of transient ischemic attack (TIA), and cerebral infarction without residual deficits
CPT/HCPCS: 36415; 70450; 80048; 80053; 82274; 82962; 83036; 83735; 84100; 84443; 85025; 85027; 93005; 96361; 96374; 96375; 97161; 97165; 99218; 99284; J7030; A4216; G0378; J2405

== ENCOUNTER → 2020-03-21 11:43 | Outpatient (CLI) | payer MEDICARE, SELFPAY ==
[2019-10-29 14:26] VITALS: BMI 34.5
--- NOTE | 2020-03-21 11:47 | BI_ITS ---
MAMMOGRAPHY - BILATERAL SCREENING REASON FOR EXAM: Female, 69 years old. Routine annual screening examination. PERTINENT HISTORY: Non-contributory. Remote left excisional breast biopsy and bilateral stereotactic breast biopsies. TECHNIQUE: Digital bilateral breast mya (3D mammographic acquisition) in the CC and MLO projections. 2-D mediolateral oblique (MLO) and craniocaudad (CC) views of both breasts were obtained. CAD: Full Field Digital Mammography with Computer Added Detection was performed. COMPARISON: Comparison is made with prior study dated March 09, 2019 and January 23, 2018. FINDINGS: Breast Composition: There are scattered areas of fibroglandular density. There are no dominant masses or suspicious calcifications. Stable calcified nodules in the axillary region of the left breast as well as in the retroareolar region. These are unchanged. No other significant abnormalities are identified. There has been no significant change since the prior study. BI/SCREEN MAMM (CAD) W/MYA BILAT IMPRESSION: Stable bilateral screening mammogram. Yearly follow-up mammogram recommended. (A) ASSESSMENT CATEGORY: BIRADS Category 2: Benign. A letter regarding these results will be sent to the patient by the facility within 30 days. Approximately 10% of breast cancers are not detected by mammography. A normal mammogram should not delay biopsy of a clinically suspicious abnormality. [id number] Electronically Signed: Kael Henry, at 13:01 EDT , Service support ,
== END ==
PROVIDERS: PCP Internal Medicine; Referring Provider Internal Medicine; Visit Provider Internal Medicine
DX: Z12.31 Encounter for screening mammogram for malignant neoplasm of breast (principal)
CPT/HCPCS: 77063; 77067

== ENCOUNTER → 2021-02-27 15:17 | Outpatient (CLI) | payer MEDICARE, SELFPAY ==
[2019-10-29 14:26] VITALS: BMI 34.5
[2021-02-27 15:44] LABS: Hematocrit 36.5 % (37-47); Hemoglobin 11.2 g/dL (12.0-15.0); Mean Corp Hgb Conc 30.7 g/dL (32-36); Mean Corpuscular Hgb 26.2 pg (27.0-32.0); Mean Corpuscular Volume 85.5 fL (81-99); Platelet Count 352 K/mm3 (150-450); RBC Distribution Width SD 49.9 fl (35.1-43.9); Red Blood Count 4.27 M/mm3 (4.2-5.4)
[2021-02-27 16:30] LABS: Anion Gap 6 (5-15); BUN 10 mg/dL (7-18); BUN/Creat Ratio 17.2 RATIO (10-20); Calcium,Total 9.3 mg/dL (8.5-10.1); Chloride 106 mmol/L (98-107); Creatinine, Serum 0.58 mg/dL (0.55-1.02); EST Glomerular Filtration Rate 109 mL/min (>60); Est Glom Filt Rate - Afr Amer 132 mL/min (>60); Glucose 74 mg/dL (74-106); Potassium 4.1 mmol/L (3.5-5.1); Sodium Level 140 mmol/L (136-145)
== END ==
PROVIDERS: PCP Internal Medicine; Visit Provider Orthopaedic Surgery
DX: Z01.818 Encounter for other preprocedural examination (principal); Z01.810 Encounter for preprocedural cardiovascular examination
CPT/HCPCS: 36415; 80048; 85027

== ENCOUNTER → 2021-04-03 12:52 | Outpatient (CLI) | payer MEDICARE, SELFPAY ==
[2019-10-29 14:26] VITALS: BMI 34.5
--- NOTE | 2021-04-03 12:54 | BI_ITS ---
MAMMOGRAPHY - BILATERAL SCREENING 3-D TOMOSYNTHESIS REASON FOR EXAM: Female, 70 years old. Routine screening PERTINENT HISTORY: Previous left breast biopsies. TECHNIQUE: 2-D mammograms and 3-D Tomosynthesis of the breast (s) were performed. CAD was performed. COMPARISON: 03/21/2020 FINDINGS: The breast composition is composed of scattered fibroglandular density. Scattered benign calcifications are seen. No dense spiculated masses or suspicious microcalcifications are identified. No architectural distortion is identified. There is no skin thickening or retraction. There has been no significant change since the prior study. BI/SCRN MAMM (CAD)W/MYA BILAT IMPRESSION: No mammographic signs of malignancy. Routine yearly mammograms recommended. ASSESSMENT CATEGORY: BIRADS Category 2: Benign. A letter regarding these results will be sent to the patient by the facility within 30 days. FOLLOW UP RECOMMENDATION: Yearly follow up mammogram recommended. (A) Approximately 10% of breast cancers are not detected by mammography. A normal mammogram should not delay biopsy of a clinically suspicious abnormality. Electronically Signed: Saqib Pendleton MD at 13:54 EDT , Service support ,
== END ==
PROVIDERS: PCP Internal Medicine; Referring Provider Internal Medicine; Visit Provider Internal Medicine
DX: Z12.31 Encounter for screening mammogram for malignant neoplasm of breast (principal)
CPT/HCPCS: 77063; 77067

== ENCOUNTER → 2021-06-22 17:18 | Outpatient (CLI) | payer MEDICARE, SELFPAY ==
[2019-10-29 14:26] VITALS: BMI 34.5
--- NOTE | 2021-06-22 18:15 | MRI_ITS ---
STUDY: MRI BRAIN WITH AND WITHOUT CONTRAST REASON FOR EXAM: Female, 70 years old. ATAXIA,VERTIGO,NAUSEA TECHNIQUE: Standardized multiplanar fat and water weighted pulse sequences were obtained. 17ML doTAREM was administered for the contrast portion of the examination. COMPARISON: 16 November 2019 FINDINGS: Normal size of the ventricles and extra-axial spaces for the patient''s age. Normal white matter tracts of the supratentorial brain. Normal bilateral basal ganglia. Normal thalami. There is no extra-axial fluid accumulation. Normal flow voids within the major intracranial circulation suggesting patency by spin echo criteria. Normal venous enhancement. There is no enhancing intra-axial or extra-axial abnormality. Normal sella turcica, pituitary gland, infundibular stalk, optic chiasm and hypothalamus. Normal tectal plate and pineal gland. Normal midbrain, neo and medulla. Normal cerebellum. Normal basal cisterns. Normal bilateral temporal bones. Normal bilateral internal auditory canals. No demonstrated orbital abnormality, within the constraints of a routine brain study. Normal visualized paranasal sinuses. Normal calvarium and skull base. Normal visualized soft tissue structures. Normal visualized upper cervical spine. MRI/Brain W/WO Contrast IMPRESSION: Normal unenhanced and enhanced MRI of the brain. Electronically Signed: Nettie Crawford MD at 18:28 EDT Tel , Service support ,
== END ==
PROVIDERS: PCP Internal Medicine; Referring Provider Internal Medicine; Visit Provider Internal Medicine
DX: R27.0 Ataxia, unspecified (principal); R32 Unspecified urinary incontinence
CPT/HCPCS: 70553; A9575

== ENCOUNTER → 2021-06-25 06:22 | Outpatient (CLI) | payer MEDICARE, SELFPAY ==
[2019-10-29 14:26] VITALS: BMI 34.5
--- NOTE | 2021-06-25 07:57 | TELEMED_ITS ---
[facility] has confirmed receipt of a request for visit. This document confirms receipt of the order initiating the consult. To find the results of the consultation, please view the patient's reports for the scanned Telemed Consult.
== END ==
PROVIDERS: PCP Internal Medicine; Referring Provider Internal Medicine; Visit Provider Internal Medicine
DX: R41.82 Altered mental status, unspecified (principal); R32 Unspecified urinary incontinence
CPT/HCPCS: 95819

== ENCOUNTER → 2021-06-27 06:53 | Outpatient (CLI) | payer MEDICARE, SELFPAY ==
[2019-10-29 14:26] VITALS: BMI 34.5
--- NOTE | 2021-06-27 10:02 | STRESSREP_ITS ---
Stress Test Report Date: 06-27-2021 Procedure: Exercise tolerance test/imaging study Indications: Chest pain Consent: Per the patient Procedure: The patient exercised on a Clayton protocol for 4 minutes completing Stage I and 1 minute of Stage II achieving a peak heart rate of 157 bpm (105% predicted maximal heart rate) with a peak blood pressure 210/88 mmHg and a peak MET capacity of 5 METs. The baseline ECG demonstrated normal sinus rhythm. The peak exercise ECG demonstrated with approximately 1 to 2 mm of downsloping/horizontal ST segment depression in leads II, III, aVF, and V3 through V6 with gradual resolution towards baseline in recovery. There were no cardiac dysrhythmias pretest, during exercise, or recovery. The functional capacity was considered decreased. There was notation of chest discomfort and shortness of breath/dyspnea with spontaneous resolution in recovery. The examination was discontinued secondary to a combination of chest discomfort and dyspnea. Impression: 1. Technically adequate (percent predicted maximal heart rate greater than 85%) exercise tolerance test 2. Peak exercise ECG: Abnormal: With approximately 1 to 2 mm of downsloping/horizontal ST segment depression in leads II, III, aVF, and V3 through V6 with gradual resolution towards baseline in recovery 3. There were no cardiac dysrhythmias pretest, during exercise, or recovery 4. Nuclear images pending Myocardial perfusion imaging study: Technique: The patient was injected with mCi of technetium 99m Cardiolite and subsequently rest SPECT Cardiolite nuclear imaging was obtained in the horizontal long, vertical long, and short axis views. The patient exercised on a Clayton protocol for 4 minutes completing Stage I and 1 minute of Stage II achieving a peak heart rate of 157 bpm (105% predicted maximal heart rate) with a peak blood pressure 210/88 mmHg and a peak MET capacity of 5 METs. The patient was injected with mCi of technetium 99m Cardiolite and subsequently stress SPECT Cardiolite nuclear imaging was obtained in the horizontal long, vertical long, and short axis views. A gated Cardiolite study at peak stress was obtained. Interpretation: Rest and stress SPECT Cardiolite nuclear imaging status post realignment, normalization, and attenuation correction, demonstrates the appearance of relative uniform tracer uptake and myocardial perfusion appearing within normal limits. There is end systolic thickening and brightening. The gated Cardiolite study demonstrates myocardial thickening and inward wall motion. The reported LVEF is 68%. Impression: 1. Rest and stress SPECT Cardiolite nuclear imaging demonstrate relative uniform tracer uptake and myocardial perfusion appearing within normal limits. 2. The gated Cardiolite study reports an LVEF of 68%. This note was generated with [employer] software. It may contain incorrect words, spelling, and punctuation that were not noted in checking the note before signing.
== END ==
PROVIDERS: PCP Internal Medicine; Referring Provider Internal Medicine; Visit Provider Internal Medicine
DX: R07.89 Other chest pain (principal)
CPT/HCPCS: 78452; 93017; A9500; A4216

== ENCOUNTER → 2021-10-02 11:57 | Outpatient (CLI) | payer MEDICARE, SELFPAY ==
[2019-10-29 14:26] VITALS: BMI 34.5
--- NOTE | 2021-10-02 12:44 | BD_ITS ---
STUDY: DUAL ENERGY X-RAY ABSORPTIOMETRY / DXA REASON FOR EXAM: Female, 70 years old. [id number]. The patient is postmenopausal. TECHNIQUE: Bone Mineral Density (BMD) measurements of lumbar spine and bilateral hips were obtained. COMPARISON: Comparison is made with prior study dated 09/21/2019. FINDINGS: Lumbar Spine (L1-L4): g/cm2 (0.835) / T-score (-1.9) / Z-score (0.3) Findings are suggestive of osteopenia with a moderate fracture risk. Left Femur Total: g/cm2 (0.910) / T-score (-0.3) / Z-score (1.3) Left Femoral Neck: g/cm2 (0.697) / T-score (-1.4) / Z-score (0.5) Right Femur Total: g/cm2 (0.887) / T-score (-0.5) / Z-score (1.2) Right Femoral Neck: g/cm2 (0.684) / T-score (-1.5) / Z-score (0.4) The T-Scores on the most recent prior examination were: Lumbar Spine (L1-L4): There has been worsening of bone density since the previous examination. Left Femur Total: which represents an improvement of 3.5%. Right Femur Total: which represents a worsening of 2.7%. BD/Dexa Bone Density Study IMPRESSION: The patient is considered osteopenic as outlined below according to World Bharathi Organization (WHO) criteria with a moderate fracture risk. There has been worsening of bone density since the previous examination. Reference Information: The T-score is the number of standard deviations above or below the standard which is normal for young adults at their peak bone mineral density. The World Health Organization (WHO) interprets the T-scores as follows: Above -1 Normal bone density Between -1 and -2.5 Osteopenia Equal to / or below -2.5 Osteoporosis As a practical clinical guideline, osteopenia may be graded as follows: Mild -1 through -1.5 Moderate -1.6 through -2.0 Severe -2.1 through -2.4 The Z-score is the number of standard deviations above or below age-matched controls. A Z-score of less than -1.5 would be considered abnormal. References: 1. NIH Osteoporosis and Related Bone Diseases www osteo.org 2. International Society for Clinical Densitometry www iscd.org 3. National Osteoporosis Foundation www nof.org Electronically Signed: Kael Henry MD at 14:57 EST , Service support ,
== END ==
PROVIDERS: PCP Internal Medicine; Referring Provider Internal Medicine; Visit Provider Internal Medicine
DX: Z13.820 Encounter for screening for osteoporosis (principal); Z78.0 Asymptomatic menopausal state
CPT/HCPCS: 77080

== ENCOUNTER → 2022-04-04 | Outpatient (CLI) | payer MEDICARE, SELFPAY ==
--- NOTE | 2022-04-04 08:27 | BI_ITS ---
MAMMOGRAPHY - BILATERAL SCREENING REASON FOR EXAM: Female, 71 years old. Routine annual screening examination. PERTINENT HISTORY: Non-contributory. History of prior bilateral stereotactic biopsies and left excisional breast biopsy. TECHNIQUE: Digital bilateral breast mya (3D mammographic acquisition) in the CC and MLO projections. 2-D mediolateral oblique (MLO) and craniocaudad (CC) views of both breasts were obtained. CAD: Full Field Digital Mammography with Computer Added Detection was performed. COMPARISON: Comparison is made with prior study dated 04/03/2021 and 03/21/2020. FINDINGS: Breast Composition: There are scattered areas of fibroglandular density. There are no dominant masses or suspicious calcifications. Stable calcified nodules in the left breast. Stable focal area of architectural distortion in the upper lateral aspect of the left breast in keeping with history of prior left excisional breast biopsy. No other significant abnormalities are identified. There has been no significant change since the prior study. BI/SCRN MAMM (CAD)W/MYA BILAT IMPRESSION: Stable bilateral screening mammogram. Yearly follow-up mammogram recommended. (A) ASSESSMENT CATEGORY: BIRADS Category 2: Benign. A letter regarding these results will be sent to the patient by the facility within 30 days. Approximately 10% of breast cancers are not detected by mammography. A normal mammogram should not delay biopsy of a clinically suspicious abnormality. [id number] Electronically Signed: Kael Henry MD at 9:30 EDT ,
== END | disposition home or self-care (01) ==
LOC: OPBI 08:25
PROVIDERS: PCP Internal Medicine; Visit Provider Internal Medicine
DX: Z12.31 Encounter for screening mammogram for malignant neoplasm of breast (principal)
CPT/HCPCS: 77063; 77067

== ENCOUNTER → 2023-01-03 | Outpatient (CLI) | payer MEDICARE, SELFPAY ==
--- NOTE | 2023-01-03 09:25 | RAD_ITS ---
STUDY: X-RAY - ESOPHAGUS (BARIUM SWALLOW) WITH FLUOROSCOPY REASON FOR EXAM: Female, 72 years old. DYSPHAGIA TECHNIQUE: 19 view(s) of the esophagus were obtained following swallowing of barium. FLUOROSCOPY TIME (if supplied): (38 seconds) minutes/seconds COMPARISON: Comparison is made with prior study dated 05/30/2010. FINDINGS: There is no demonstrated esophageal foreign body. There is no demonstrated stricture or mucosal abnormality. Moderate sized hiatal hernia. No evidence of gastroesophageal reflux at this time. The patient ingested a 12 mm tablet of barium without any difficulty. There is atherosclerotic calcification of the aortic arch with tortuosity of the descending aorta. Normal visualized pulmonary parenchyma. Normal visualized osseous structures of the thorax. RAD/Esophagus Dual Contrast IMPRESSION: Moderate sized hiatal hernia. No evidence of gastroesophageal reflux at this time. Electronically Signed: Kael Henry MD at 14:35 EST ,
== END | disposition home or self-care (01) ==
PROVIDERS: PCP Internal Medicine; Visit Provider Internal Medicine Gastroenterology
DX: R13.10 Dysphagia, unspecified (principal)
CPT/HCPCS: 74221

== ENCOUNTER → 2023-04-08 | Outpatient (CLI) | payer MEDICARE, SELFPAY ==
--- NOTE | 2023-04-08 12:22 | BI_ITS ---
MAMMOGRAPHY - BILATERAL SCREENING REASON FOR EXAM: Female, 72 years old. Routine annual screening examination. PERTINENT HISTORY: Non-contributory. History of prior bilateral stereotactic biopsies and left excisional biopsy. TECHNIQUE: Digital bilateral breast mya (3D mammographic acquisition) in the CC and MLO projections. 2-D mediolateral oblique (MLO) and craniocaudad (CC) views of both breasts were obtained. CAD: Full Field Digital Mammography with Computer Added Detection was performed. COMPARISON: Mammogram from 04/04/2022, 04/03/2021. FINDINGS: Breast Composition: There are scattered areas of fibroglandular density. There are no dominant masses or suspicious calcifications. Stable benign-appearing left breast calcifications. Stable biopsy marker in the left breast. No other significant abnormalities are identified. There has been no significant change since the prior study. BI/SCRN MAMM (CAD)W/MYA BILAT IMPRESSION: Stable bilateral screening mammogram. Yearly follow-up mammogram recommended. (A) ASSESSMENT CATEGORY: BIRADS Category 2: Benign. A letter regarding these results will be sent to the patient by the facility within 30 days. Approximately 10% of breast cancers are not detected by mammography. A normal mammogram should not delay biopsy of a clinically suspicious abnormality. Electronically Signed: Gil Adams MD at 16:18 EDT ,
== END | disposition home or self-care (01) ==
LOC: OPBI 12:20
PROVIDERS: PCP Internal Medicine; Referring Provider Internal Medicine; Visit Provider Internal Medicine
DX: Z12.31 Encounter for screening mammogram for malignant neoplasm of breast (principal)
CPT/HCPCS: 77063; 77067

== ENCOUNTER → 2023-10-07 | Outpatient (CLI) | payer MEDICARE, SELFPAY ==
--- NOTE | 2023-10-07 12:01 | BD_ITS ---
STUDY: DUAL ENERGY X-RAY ABSORPTIOMETRY / DXA REASON FOR EXAM: Female, 72 years old. Z78.0 TECHNIQUE: Bone Mineral Density (BMD) measurements of lumbar spine and bilateral hips were obtained. COMPARISON: Comparison is made with prior study October 02, 2021. FINDINGS: Lumbar Spine (L1-L4): g/cm2 (0.863) / T-score (-1.7) / Z-score (0.7) Findings are suggestive of osteopenia with a moderate fracture risk. Left Femur Total: g/cm2 (0.887) / T-score (-0.5) / Z-score (1.3) Left Femoral Neck: g/cm2 (0.637) / T-score (-1.9) / Z-score (0.1) Right Femur Total: g/cm2 (0.911) / T-score (-0.3) / Z-score (1.5) Right Femoral Neck: g/cm2 (0.730) / T-score (-1.1) / Z-score (0.9) The T-Scores on the most recent prior examination were: Lumbar Spine (L1-L4): There has been improvement of bone density since the previous examination. Left Femur Total: which represents a worsening of 2.6%. Right Femur Total: which represents an improvement of 2.7%. BD/Dexa Bone Density Study IMPRESSION: The patient is considered osteopenic as outlined below according to World Bharathi Organization (WHO) criteria with a moderate fracture risk. There has been improvement of bone density since the previous examination. Reference Information: The T-score is the number of standard deviations above or below the standard which is normal for young adults at their peak bone mineral density. The World Health Organization (WHO) interprets the T-scores as follows: Above -1 Normal bone density Between -1 and -2.5 Osteopenia Equal to / or below -2.5 Osteoporosis As a practical clinical guideline, osteopenia may be graded as follows: Mild -1 through -1.5 Moderate -1.6 through -2.0 Severe -2.1 through -2.4 The Z-score is the number of standard deviations above or below age-matched controls. A Z-score of less than -1.5 would be considered abnormal. References: 1. NIH Osteoporosis and Related Bone Diseases www osteo.org 2. International Society for Clinical Densitometry www iscd.org 3. National Osteoporosis Foundation www nof.org Electronically Signed: Kael Henry MD at 8:19 EST ,
== END | disposition home or self-care (01) ==
LOC: OPBD 11:54
PROVIDERS: PCP Internal Medicine; Referring Provider Internal Medicine; Visit Provider Internal Medicine
DX: Z12.31 Encounter for screening mammogram for malignant neoplasm of breast (principal); Z78.0 Asymptomatic menopausal state
CPT/HCPCS: 77080

== ENCOUNTER → 2024-02-18 | Outpatient (CLI) | payer MEDICARE, SELFPAY ==
--- NOTE | 2024-02-18 07:21 | US_ITS ---
STUDY: ABDOMINAL ULTRASOUND - RIGHT UPPER QUADRANT REASON FOR VISIT: Female, 73 years old epigastric pain. Nausea and vomiting. TECHNIQUE: Ultrasound evaluation of the right upper quadrant was performed with real-time and static barrera-scale imaging. TECHNICAL QUALITY: Adequate. COMPARISON: None. FINDINGS: Liver: The liver is enlarged and measures 18.1 cm. There is increased echogenicity consistent with fatty infiltration. The bile ducts are within normal limits. There is hepatic color flow. The direction of portal flow is hepatopetal. There is no demonstrated mass lesion. Gallbladder: Normal distended gallbladder. The gallbladder wall measures 2.3 mm. There is a negative sonographic Almanza''s sign. There is no pericholecystic fluid. There are multiple echogenic structures within the gallbladder, consistent with multiple gallstones. Common Bile Duct (C.B.D.): The common bile duct is mildly dilated and measures 8.8 mm. I suspect a stone in the common bile duct. This measures 6 mm x 4 mm. Pancreas: Normal size of the head, body and tail of the pancreas. There is increased echogenicity of the pancreas. There is no demonstrated pancreatic mass or cyst. Right Kidney: Normal size of the right kidney. The right kidney measures 10.7 cm x 5.4 cm x 4.3 cm. Normal renal cortex. The right cortex measures 1.1 cm. There is no demonstrated renal mass or cyst. There is no right hydronephrosis. US/Abdomen Limited IMPRESSION: Mild hepatomegaly and fatty infiltration of the liver. Multiple gallstones. Mildly dilated common bile duct. I suspect a stone in the common bile duct. This measures 6 mm x 4 mm Electronically Signed: Kael Henry MD at 13:25 EDT ,
== END | disposition home or self-care (01) ==
LOC: US 07:21
PROVIDERS: PCP Internal Medicine; Referring Provider Internal Medicine; Visit Provider Internal Medicine
DX: R10.13 Epigastric pain (principal)
CPT/HCPCS: 76705

== ENCOUNTER → 2024-03-01 | Outpatient (CLI) | payer MEDICARE, SELFPAY ==
[2024-03-01 16:49] LABS: Absolute Lymphocyte Count 3.05 X10^3/uL (0.83-4.51); Basophil# 0.05 X10^3/uL; Basophil% 0.5 % (0-1); Eosinophil# 0.12 X10^3/uL; Eosinophils% 1.2 % (0-5); Hematocrit 36.6 % (37-47); Lymphocyte # 3.05 X10^3/ul (0.83-4.51); Lymphocyte % 30.2 % (19-41); Mean Corp Hgb Conc 30.1 g/dL (32-36); Mean Corpuscular Hgb 25.2 pg (27.0-32.0); Mean Corpuscular Volume 83.8 fL (81-99); Mean Platelet Vol. 10.7 fl (6.2-12.0); Monocyte# 0.88 X10^3/uL; Monocyte% 8.7 % (0-10); NRBC Flagged by Analyzer 0 % (0-5); Neutrophil # 5.96 X10^3/uL (2.7-7.7); Platelet Count 365 K/mm3 (150-450); RBC Distribution Width SD 48.9 fl (35.1-43.9); Red Blood Count 4.37 M/mm3 (4.2-5.4); White Blood Count 10.1 K/mm3 (4.4-11.0)
[2024-03-01 17:42] LABS: ALB/GLOB Ratio 0.9 RATIO (0.9-2.4); AST(SGOT) 18 U/L (15-37); Alanine Aminotransfer ALT/SGPT 23 U/L (13-56); Albumin, Serum 3.7 g/dL (3.2-5.0); Alkaline Phosphatase 75 U/L (45-117); Anion Gap 6 (5-15); BUN 12 mg/dL (7-18); BUN/Creat Ratio 18.5 RATIO (10-20); Calcium,Total 9.4 mg/dL (8.5-10.1); Chloride 104 mmol/L (98-107); Creatinine, Serum 0.65 mg/dL (0.55-1.02); EST Glomerular Filtration Rate 95 mL/min (>60); Est Glom Filt Rate - Afr Amer 115 mL/min (>60); Glucose 96 mg/dL (74-106); Potassium 4.5 mmol/L (3.5-5.1); Protein, Total 7.7 g/dL (6.4-8.2); Sodium Level 140 mmol/L (136-145)
[2024-03-02 13:27] LABS: Lipase 38 U/L (13-75)
== END | disposition home or self-care (01) ==
LOC: LAB 16:04
PROVIDERS: PCP Internal Medicine; Referring Provider Surgery; Visit Provider Surgery
DX: K80.20 Calculus of gallbladder without cholecystitis without obstruction (principal)
CPT/HCPCS: 36415; 80053; 83690; 85025

== ENCOUNTER 2024-04-07 06:26 | Day surgery (SDC) | payer MEDICARE, SELFPAY ==
[2024-04-07] VITALS (7 sets, daily range): BP systolic 118–168; BP diastolic 46–79; PULSE 57–74; RESP 16–18; TEMP 35.8–36.9; O2SAT 96–99; BMI 35.2
[2024-04-07] MEDS: Lactated Ringers 1,000 ML 75 ML IV (07:15)
--- NOTE | 2024-04-07 07:30 | EGD_PTH ---
PATIENT: AG NORTON LOC: EN U#:[id number] AGE/SX: 73/F ROOM: RE04/07/[address]: Dr. Dany Resendiz MD : 1950 BED: DIS: 04/07/2024 SPEC #: [id number] RECD: 04/07/24 12:46 STATUS: MATT ALEXANDRE #: [id number] GALILEO: 04/07/24 07:[address]: Dany Resendiz DEPT: SURGICAL PATHOLOGY RECD BY: Portillo Littlejohn ENTERED: 04/07/24 13:53 SP TYPE: EGD BIOPSY MERCEDES DR: Dr. Irish Bee DO Tissues: A - Gastric mucous membrane B - Gastric mucous membrane C - Gastric mucous membrane D - Esophagus, NOS Procedures: Special Stain Group I Surgery Specimen Level IV Alcian Blue/PAS (control) HEADER OPERATION: EGD, ph probe, polypectomy and biopsy PRE-OP DIAGNOSIS: Epigastric pain, abdominal ultrasound, abnormal, belching symptom, nausea, history of hiatal hernia TISSUE SUBMITTED: A- Antrum biopsy, B- Gastric body biopsy, C- Gastroesophageal junction biopsy, D- Distal esophagus biopsy MICROSCOPIC DIAGNOSIS A. Gastric antrum, biopsy: Chronic gastritis. B. Gastric body, biopsy: Neuroendocrine tumor, low grade. See comment. C. Gastroesophageal junction, biopsy: Fragments of benign squamous mucosa. No evidence of inflammation. No evidence of goblet cell metaplasia. See comment. D. Distal esophagus, biopsy: Benign squamous mucosa No evidence of goblet cell metaplasia. See Comment. COMMENT A. The results of immunohistochemistry for Helicobacter pylori will be reported separately ([id number]). B. Immunohistochemistry ([id number]) supports the above diagnosis. C&D. Alcian blue/PAS stain with matched control supports the above diagnosis. MICROSCOPIC DESCRIPTION Slides are reviewed. GROSS DESCRIPTION A. Received in fixative is one container labeled with the patient's name and designated Antrum biopsy. The specimen consists of one irregular fragment of light yo soft tissue that measures 0.5 x 0.3 x 0.1 cm. The specimen is totally submitted in one cassette. B. Received in fixative is one container labeled with the patient's name and designated Gastric body polyp. The specimen consists of two irregular fragments of light yo soft tissue that in aggregate measure 1.0 x 1.0 x 0.2 cm. The specimen is totally submitted in one cassette. C. Received in fixative is one container labeled with the patient's name and designated GE junction biopsy. The specimen consists of two irregular fragments of light yo soft tissue that in aggregate measure 0.5 x 0.2 x 0.1 cm. The specimen is totally submitted in one cassette. D. Received in fixative is one container labeled with the patient's name and designated Distal esophageal plaque. The specimen consists of one irregular fragment of light yo soft tissue that measures 0.5 x 0.2 x 0.1 cm. The specimen is totally submitted in one cassette. PAULINO/ 04/07/2024 TC:0 CPT:73858c0
--- NOTE | 2024-04-07 07:30 | IMM_PTH ---
PATIENT: AG NORTON LOC: EN U#:[id number] AGE/SX: 73/F ROOM: RE04/07/[address]: Dr. Dany Resendiz MD : 1950 BED: DIS: 04/07/2024 SPEC #: [id number] RECD: 04/07/24 14:59 STATUS: MATT REQ #: [id number] GALILEO: 04/07/24 07:[address]: Dany Resendiz DEPT: IMMUNOHISTOCHEMISTRY RECD BY: Rafa Duran ENTERED: 04/07/24 15:00 SP TYPE: IMMUNO OTHR DR: Dr. Irish Bee, Tissues: A - Gastric mucous membrane Procedures: Synapto (add) H Pylori (initial) NAPSIN A (add) CD138 (add) CD45 (add) CD56 (add) CEA (add) CHROMO (add) CK20 (add) CK5-6 (add) CK7 (add) CK8 (add) BRANDON (add) KI-67 (add) P53 (add) TTF1 (add) Vimentin (add) Pankeratin (add) P40 (add) HER-2-FILEMON (initial) NSE (add) S-100 (add) PHYSICIAN & INSTITUTION [place] [id number] SPECIMEN INFORMATION: Tissue Source: A- Antrum biopsy Clinical Info: Epigastric pain, abdominal ultrasound, abnormal, belching symptom, nausea, history of hiatal hernia, heartburn symptom Specimen Number: [id number] A,B CPT code: [id number] METHODOLOGY: Deparaffinized sections of prefer/formalin-fixed tissue or PAP/DQ stained slides are incubated with monoclonal/polyclonal antibodies/oligonucleotide probes. Localization is made via biotin free immunoperoxidase method. Appropriate controls are performed and reacted as expected. Results on target cell population are indicated in the following table: RESULTS: ANTIBODY / CLONE RESULT Block A H Pylori (polyclonal) negative Block B Her-2neu (CB11) negative AE1-3 (AE1/AE3/PCK26) positive, rare cells CK7 (OV-TL12/30) positive, rare cells CK8 (02limyV57) positive, dim CK20 (KS20.8) negative CD45 (RP2/18) negative CD138 (B-A38) positive Vimentin (V9) negative S-100 (4C4.9) negative CD56 (123C3.D5) positive Chromo (LK2H10) positive Synapto (polyclonal) positive NSE Neuron Specific Enolase positive, dim TTF-1 (8G7G3/1) negative Napsin A (Rabbit Polyclonal) negative CK5-6 (D5 & 1684) negative P40 (BC28) negative BRANDON (E29) positive CEA (11-7/TF-3HB-1) negative P53 (DO-7) negative, null pattern Ki-67 (30-9) positive, rare cells These tests were developed and their performance characteristics determined by [facility]. They may not have been cleared or approved by the U.S. Food and Drug Administration. The FDA has determined that such clearance or approval is not necessary. The above immunohistochemical/dualISH markers are ordered and reviewed by the Pathologist. INTERPRETATION: A. Gastric antrum, biopsy: Negative for Helicobacter pylori organisms. B. Gastric body, biopsy: Neuroendocrine tumor, low grade. PAULINO/ 04/09/2024
--- NOTE | 2024-04-07 07:35 | PCM.HP.BLA ---
History and Physical Date of Admission: 04/07/24 Date of Service: 03/01/24 MR#: [id number] Acct: [id number] Name: AG NORTON Rep #: [id number] : 1950 Provider: Dr. Dany Resendiz MD Age/Sex: 73/F Location: [facility] Status: Signed Intake Vital Signs 10/02/2112:42 03/01/2415:16 Height 5 ft 5 ft Weight: 186 lb BMI 36.3 BP 153/78 H Blood Pressure Location Rt brachial Position Sitting Respiration 17 Pulse 72 Pulse Source Monitor Temp 96.2 F L Temp Source Temporal Pulse Oximetry (%) 98 Oxygen Delivery Method room air Intake Visit Reasons: GALLBLADDER Chief Complaint: gallbladder Is patient in pain?: Yes Allergies latex Allergy (Verified 03/01/24 15:17) Hives Medications calcium carbonate 600 mg-vitamin D3 20 mcg (800 unit) tablet (Caltrate with Vitamin D3) 1 tab PO DAILY@0800 11/18/15 [History Confirmed 03/01/24] pravastatin 80 mg tablet 80 mg PO DAILY 11/18/15 [History Confirmed 03/01/24] aspirin 81 mg tablet,delayed release 81 mg PO DAILY@0800 10/29/19 [History Confirmed 03/01/24] cholecalciferol (vitamin D3) 50 mcg (2,000 unit) capsule 2,000 unit PO DAILY 10/29/19 [History Confirmed 03/01/24] citalopram 20 mg tablet 20 mg PO DAILY 10/29/19 [History Confirmed 03/01/24] ferrous sulfate 325 mg (65 mg iron) tablet 325 mg PO DAILY 10/29/19 [History Confirmed 03/01/24] metformin 500 mg tablet,extended release 24 hr 1,000 mg PO BID 10/29/19 [History Confirmed 03/01/24] metoprolol succinate 25 mg tablet,extended release 24 hr 25 mg PO DAILY heart 10/29/19 [History Confirmed 03/01/24] omeprazole 40 mg capsule,delayed release 40 mg PO DAILY 10/29/19 [History Confirmed 03/01/24] pentoxifylline 400 mg tablet,extended release 400 mg PO DAILY pad 10/29/19 [History Confirmed 03/01/24] meclizine 25 mg tablet 25 mg PO Q8H PRN Vertigo #14 tabs 10/30/19 [Rx Confirmed 03/01/24] pantoprazole 40 mg tablet,delayed release 40 mg PO DAILY #30 tabs 03/01/24 [Rx Confirmed 03/01/24] sitagliptin phosphate 100 mg tablet (Januvia) 100 mg PO DAILY 03/01/24 [History Confirmed 03/01/24] PFSH Medical History (Updated 03/01/24 @ 17:[address] Dany Resendiz MD) Acid reflux Surgical History (Updated 03/01/24 @ 15:15 by Ag Valencia) H/O: hysterectomy Status post bilateral knee replacements Social History (Updated 03/01/24 @ 15:16 by Ag Valencia) Smoking Status: Never smoker alcohol intake: never substance use type: does not use HPI HPI HPI: Patient is a 73-year-old female who presents for evaluation of a number of complaints as well as a recent diagnosis of possible common bile duct stone. They are referred for surgical consultation from Dr. Bee. Patient opens our interview by stating that she simply wants to stop feeling poorly. She describes epigastric discomfort that is associated with lots of nausea and belching all the time. She notes that this belching is new. 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 She denies any awareness of sick contacts. Additionally she reports an experience of really bad heartburn. When asked to estimate the induration on her symptoms she admits that it has been going on for years but then confirms that the symptoms have been progressive in nature. She previously underwent a EGD exam with Dr. Mckee of gastroenterology. She shares that she was diagnosed with a hiatal hernia at that time. She relates that several tests were done but she is unable to recall which tests were performed or what the results of these tests ultimately were. She does note that she has been on omeprazole 40 mg for some time as well as Zantac but quickly adds that there is been little to no efficacy with her Zantac and she believes that her omeprazole is less effective than her Nexium. When asked about any right upper quadrant discomfort, Mrs. Norton flatly states that it is all upper abdomen. She denies any yellowing of her eyes or any change of color to her urine or stools. Previous work-up has included: Abdominal ultrasound performed 02/18/2024 which suggested a mildly dilated common bile duct at 8.8 mm with a possible 4 mm x 6 mm common bile duct stone. Outside the above patient confirms a medical history of diabetes but states this is well-controlled and estimates her last A1c was 6.7. She shares that she has a very mild heart murmur and obstructive sleep apnea that is controlled with CPAP. There is mention made of possible hepatitis C viral infection but she denies this history. Patient's only past surgical history was a transabdominal hysterectomy done remotely. ROS General General: Yes fatigue; No weight change, appetite, colon cancer, breast cancer or weakness HEENT HEENT: No difficulty swallowing, eye injury, eye surgery, swollen glands or hoarseness Endo Endocrine: Yes diabetes mellitus; No thyroid disease, thyroid cancer, Hair loss, heat intolerance or cold intolerance Skin Skin: No rash or changing moles Musc Musculoskeletal: No back problems, arthritis, rheumatoid arthritis, gout or joint pain Cardio Cardiovascular: Yes murmur and high blood pressure; No pacemaker, heart disease, atrial fibrillation, heart attack, heart stent, palpitations, shortness of breat with exertion or chest pain Psych Psychiatric: No depression, anxiety or hearing voices Resp Respiratory: No shortness of breath, Yes sleep apnea, Yes cough, No COPD, Yes asthma, No emphysema and No wheezing Gastro Gastrointestinal: No abdominal pain, Yes nausea or vomiting, No diarrhea, No constipation, No blood in stool, Yes acid reflux, Yes hemorrhoids, No ulcers, Yes gallbladder problem and No black,tarry stools William Hematologic: No blood thinners, No blood disorders, No bleeding, No anemia and No blood clots Neuro Neurologic: No system reviewed and no additional complaints, except as documented, No as per HPI, No abnormal gait, No abnormal hearing, No abnormal movements, No abnormal speech, No behavioral changes, No burning sensations, No confusion, No convulsions, No disequilibrium, No dizziness, No localized weakness, No frequent falls, No headache(s), No lack of coordination, No loss of vision, No memory loss, No numbness, No other visual disturbances, No radicular pain, No restless legs, No sensory deficit, No syncope, No tingling, No tremor(s), No weakness and No other Exam Const General: cooperative and anxious Orientation: alert, awake and oriented x3 Resp Effort & Inspection: normal respiratory effort GI Other: Obese, no visible scars, nondistended, soft, nontender to palpation x 4 quadrants, negative Almanza sign Assessment and Plan Assessment and Plan (1) Epigastric pain: Status: Acute Comment: Patient is a 73-year-old female with history of chronic epigastric discomfort and associated symptoms of belching, nausea, vomiting, and heartburn. The above symptoms are highly suggestive of dyspepsia and patient reportedly had a hiatal hernia confirmed with esophagogastroduodenoscopy in the last couple of years by gastroenterology. Additionally there is a recent esophagram that demonstrates this anomaly as well. Patient reporting more breakthrough symptoms despite faithful use of omeprazole. I have suggested we could trial an alternative PPI medication and more specifically recommended pantoprazole 40 mg daily. Patient readily excepted this offer. Additionally, I suggested that we proceed for repeat EGD with H. pylori testing as well as pH probe placement. Given patient's apparent distress with her symptoms she may ultimately require antireflux surgery if deemed to be an appropriate candidate. Will look to start that workup now. Plan: ? Change omeprazole to pantoprazole 40 mg daily ? EGD with H. pylori biopsy and pH probe placement (2) Abdominal ultrasound, abnormal: Status: Acute Comment: Patient with ultrasound result earlier this month that suggested possible choledocholithiasis, however, patient's interview does not match this diagnosis. I tried to see if patient had undergone recent comprehensive metabolic panel but according to her recollection it does not appear that she has recent laboratories. In short, patient's history is more suggestive of an upper GI source for her symptoms, but I do not want to dismiss what appears to be an objective sonographic finding. Thus I have suggested that we proceed with update CMP and if there is suspicion for a common duct stone based on these labs then we will proceed to the OR for laparoscopic cholecystectomy with intraoperative cholangiography. However, if there is no indication from the labs of a common duct stone that we should proceed for MRCP and see if any surgical intervention is really warranted. Patient is happy with this plan and wishes to proceed as described Plan: ? CMP today then cholecystectomy with cholangiography versus MRCP (3) Belching symptom: Status: Acute Plan: EGD (4) Nausea: Status: Acute Plan: EGD (5) History of hiatal hernia: Status: Acute Plan: EGD with pH probe placement (6) Heartburn symptom: Status: Acute I have examined the patient the following changes are noted: Patient reports vomiting over the weekend no matter what she tried to take in. She also confirms that she stopped her PPI medication anticipation of today's procedure. Procedure expectations were reviewed and patient denies any further questions. Proceed to the endoscopy suite for planned EGD as discussed in greater detail above.
[2024-04-07 07:39] LABS: Bedside Glucose 136 mg/dL (74-106)
--- NOTE | 2024-04-07 08:46 | OP.CCLET_ITS ---
04/07/2024 Irish Bee [address] [place] [address] Re : Upper GI endoscopy procedure for Anay Coronel Dear Dr. Bee This procedure was performed on Sunday, April 07, 2024. My impressions and recommendations are as follows: Impressions : - Normal duodenal bulb, first portion of the duodenum and second portion of the duodenum. No specimens collected. - Erythematous mucosa in the antrum. Biopsied. - A single gastric polyp. Resected and retrieved. - Large hiatal hernia. - Non-severe esophagitis with no bleeding. Biopsied. - Multiple plaques in the lower third of the esophagus. Biopsied. - Esophageal mucosal changes were present. Findings are suggestive of inflammation. - The Active Storage pH capsule was deployed. Recommendations : - Discharge patient to home (via wheelchair). - Resume previous diet today. - Continue present medications. - Await pathology results. - Telephone my office for pathology results in 1 week. My findings are described in the full procedure note, which is enclosed. If I can be of further assistance, please feel free to contact me at Doctor phone number(s): , Work: . Sincerely, Dany Resendiz MD 04/07/2024 8:45:59 AM This report has been signed electronically.
--- NOTE | 2024-04-07 08:46 | OP.EGD_ITS ---
Patient Name: Anay Coronel Procedure Date: 04/07/2024 7:35 AM Date of : 1950 Age: 73 Procedure: Upper GI endoscopy Indications: Heartburn, Abdominal bloating, Nausea with vomiting Providers: Dany Resendiz MD Medicines: See the Anesthesia note for documentation of the administered medications Patient Profile: Refer to note in patient chart for documentation of history and physical. Complications: No immediate complications. Estimated blood loss: Minimal. Procedure: Pre-Anesthesia Assessment: - The heart rate, respiratory rate, oxygen saturations, blood pressure, adequacy of pulmonary ventilation, and response to care were monitored throughout the procedure. After obtaining informed consent, the endoscope was passed under direct vision. Throughout the procedure, the patient's blood pressure, pulse, and oxygen saturations were monitored continuously. The gastroscope was introduced through the mouth, and advanced to the second part of duodenum. The upper GI endoscopy was somewhat difficult due to the lack of IV access. Successful completion of the procedure was aided by having anesthesiology staff obtain IV access. The patient tolerated the procedure fairly well. Scope In: 7:46:34 AM Scope Out: 8:33:08 AM Total Procedure Duration Time 0 hours 46 minutes 34 seconds Findings: The duodenal bulb, first portion of the duodenum and second portion of the duodenum were normal. No biopsies or other specimens were collected for this exam. Localized mildly erythematous mucosa without bleeding was found in the gastric antrum. Biopsies were taken with a cold forceps for histology. Estimated blood loss was minimal. Biopsies were taken with a cold forceps for Helicobacter pylori testing. Estimated blood loss was minimal. A single 3 mm semi-pedunculated polyp with no bleeding and no stigmata of recent bleeding was found in the gastric body. The polyp was removed with a hot snare. Resection and retrieval were complete. Estimated blood loss: 1 mL requiring treatment with placement of hemostatic clip(s). A large hiatal hernia was present. Non-severe esophagitis with no bleeding was found 32 cm from the incisors. Biopsies were taken with a cold forceps for histology. Multiple 3 to 7 mm plaques were found in the lower third of the esophagus, 30 cm from the incisors. Biopsies were taken with a cold forceps for histology. Diffuse mild inflammation was found in the entire esophagus. The JAIMES capsule with delivery system was introduced through the mouth and advanced into the esophagus, such that the JAIMES pH capsule was positioned 26 cm from the incisors, which was 6 cm proximal to the GE junction. The JAIMES pH capsule was then deployed and attached to the esophageal mucosa. The delivery system was then withdrawn. Endoscopy was utilized for probe placement and diagnostic evaluation. Estimated blood loss: none. Impression: - Normal duodenal bulb, first portion of the duodenum and second portion of the duodenum. No specimens collected. - Erythematous mucosa in the antrum. Biopsied. - A single gastric polyp. Resected and retrieved. - Large hiatal hernia. - Non-severe esophagitis with no bleeding. Biopsied. - Multiple plaques in the lower third of the esophagus. Biopsied. - Esophageal mucosal changes were present. Findings are suggestive of inflammation. - The JAIMES pH capsule was deployed. Recommendation: - Discharge patient to home (via wheelchair). - Resume previous diet today. - Continue present medications. - Await pathology results. - Telephone my office for pathology results in 1 week. Procedure Code(s): --- Professional --- 38897, Esophagogastroduodenoscopy, flexible, transoral; with removal of tumor(s), polyp(s), or other lesion(s) by snare technique 53058, 59, Esophagogastroduodenoscopy, flexible, transoral; with biopsy, single or multiple Diagnosis Code(s): --- Professional --- K31.89, Other diseases of stomach and duodenum K31.7, Polyp of stomach and duodenum K44.9, Diaphragmatic hernia without obstruction or gangrene K20.90, Esophagitis, unspecified without bleeding K22.89, Other specified disease of esophagus R12, Heartburn R14.0, Abdominal distension (gaseous) R11.2, Nausea with vomiting, unspecified CPT copyright 2021 [employer]. All rights reserved. The codes documented in this report are preliminary and upon beater room supervisor review may be revised to meet current compliance requirements. Dany Resendiz MD 04/07/2024 8:45:59 AM This report has been signed electronically. Number of Addenda: 0 Note Initiated On: 04/07/2024 7:35 AM
== END 2024-04-07 09:36 | disposition home or self-care (01) ==
LOC: EN 06:28 → AC 06:29
PROVIDERS: PCP Internal Medicine; Referring Provider Internal Medicine; Visit Provider Surgery
PROC: (CPT 43235; principal; 2024-04-07 07:25)
DX: R10.13 Epigastric pain (principal); C7A.8 Other malignant neuroendocrine tumors; E11.9 Type 2 diabetes mellitus without complications; K44.9 Diaphragmatic hernia without obstruction or gangrene; K31.7 Polyp of stomach and duodenum; Z79.84 Long term (current) use of oral hypoglycemic drugs; G47.33 Obstructive sleep apnea (adult) (pediatric); Z79.899 Other long term (current) drug therapy; Z90.710 Acquired absence of both cervix and uterus; Z96.653 Presence of artificial knee joint, bilateral; Z99.89 Dependence on other enabling machines and devices; R93.5 Abnormal findings on diagnostic imaging of other abdominal regions, including retroperitoneum; R14.2 Eructation; R11.0 Nausea; K31.89 Other diseases of stomach and duodenum; K21.00 Gastro-esophageal reflux disease with esophagitis, without bleeding; K22.89 Other specified disease of esophagus; R14.0 Abdominal distension (gaseous); K29.50 Unspecified chronic gastritis without bleeding
CPT/HCPCS: 43251; 43239; 82962; 88305; 88312; 88341; 88342; J7120; J2405

== ENCOUNTER → 2024-04-13 | Outpatient (CLI) | payer MEDICARE, SELFPAY ==
--- NOTE | 2024-04-13 08:38 | BI_ITS ---
MAMMOGRAPHY - BILATERAL SCREENING REASON FOR EXAM: Female, 73 years old. Routine annual screening examination. PERTINENT HISTORY: Non-contributory. History of remote left excisional breast biopsy and bilateral stereotactic breast biopsies. TECHNIQUE: Digital bilateral breast mya (3D mammographic acquisition) in the CC and MLO projections. 2-D mediolateral oblique (MLO) and craniocaudad (CC) views of both breasts were obtained. CAD: Full Field Digital Mammography with Computer Added Detection was performed. COMPARISON: Comparison is made with prior study April 08, 2023 and April 04, 2022. FINDINGS: Breast Composition: There are scattered areas of fibroglandular density. There are no dominant masses or suspicious calcifications. Stable left breast calcified nodules. A tissue clip marker is seen in the upper central portion of the left breast. No other significant abnormalities are identified. There has been no significant change since the prior study. BI/SCRN MAMM (CAD)W/MYA BILAT IMPRESSION: Stable bilateral screening mammogram. Yearly follow-up mammogram recommended. (A) ASSESSMENT CATEGORY: BIRADS Category 2: Benign. A letter regarding these results will be sent to the patient by the facility within 30 days. Approximately 10% of breast cancers are not detected by mammography. A normal mammogram should not delay biopsy of a clinically suspicious abnormality. [id number] Electronically Signed: Kael Henry MD at 10:25 EDT ,
== END | disposition home or self-care (01) ==
LOC: OPBI 08:37
PROVIDERS: PCP Internal Medicine; Referring Provider Internal Medicine; Visit Provider Internal Medicine
DX: Z12.31 Encounter for screening mammogram for malignant neoplasm of breast (principal)
CPT/HCPCS: 77063; 77067

== ENCOUNTER → 2024-04-26 | Outpatient (CLI) | payer MEDICARE, SELFPAY ==
[2024-04-28 16:11] LABS: Gastrin, Serum 1193 pg/mL (0-115)
== END | disposition home or self-care (01) ==
LOC: LAB 13:14
PROVIDERS: PCP Internal Medicine; Referring Provider Surgery; Visit Provider Surgery
DX: D3A.8 Other benign neuroendocrine tumors (principal)
CPT/HCPCS: 36415; 82941

== ENCOUNTER → 2024-05-26 | Outpatient (CLI) | payer MEDICARE, SELFPAY ==
[2024-05-28 17:07] LABS: Dopamine, 24Ur 3 ug/24 hr (0-510); Dopamine, UR 103 ug/L (Undefined); Epinephrine, 24Ur 0 ug/24 hr (0-20); Epinephrine, Ur < 3 ug/L (Undefined); Norepinephrine, 24Ur 1 ug/24 hr (0-135); Norepinephrine, Ur 35 ug/L (Undefined); VMA, 24UR 0.1 mg/24 hr (0.0-7.5); VMA, UR 2.2 mg/L (Undefined)
== END | disposition home or self-care (01) ==
PROVIDERS: PCP Internal Medicine; Referring Provider Internal Medicine Gastroenterology; Visit Provider Internal Medicine Gastroenterology
DX: D3A.8 Other benign neuroendocrine tumors (principal)
CPT/HCPCS: 81050; 82384; 84585

== ENCOUNTER → 2024-06-07 | Outpatient (CLI) | payer MEDICARE, SELFPAY ==
[2024-06-07 17:42] LABS: Vitamin B12 191 pg/mL (211-911)
[2024-06-07 17:57] LABS: Iron 26 ug/dL (50-170)
[2024-06-09 12:10] LABS: Anti-Centromere B Ab <0.2 AI (0.0-0.9); Anti-Chromatin <0.2 AI (0.0-0.9); Anti-Jo <0.2 AI (0.0-0.9); Anti-Scleroderma-70 AB <0.2 AI (0.0-0.9); Anti-dsDNA Ab <1 IU/mL (0-9); RNP Ab 0.4 AI (0.0-0.9); SJOGREN'S Anti-SS-A test < 0.2 AI (0.0-0.9); SJOGREN'S Anti-SS-B test < 0.2 AI (0.0-0.9); Smith Ab <0.2 AI (0.0-0.9)
[2024-06-11 13:08] LABS: Albumin 3.8 g/dL (2.9-4.4); Alpha-1-Globulins 0.2 g/dL (0.0-0.4); Alpha-2-Globulins 0.8 g/dL (0.4-1.0); Anti-Parietal Cell AB, QN 10.5 Units (0.0-20.0); Cytoplasmic Ab (C-ANCA) <1:20 titer (Neg:<1:20); Deamidated Gliadin IgA 5 units (0-19); Deamidated Gliadin IgG 2 units (0-19); Endomysial Antibody IgA Negative (Negative); Gamma Globulin 1.3 g/dL (0.4-1.8); Gastrin, Serum 663 pg/mL (0-115); IgG, Quant 1241 mg/dL (586-1602); Immunoglobulin A 266 mg/dL (64-422); Immunoglobulin E 15 IU/mL (6-495); Immunoglobulin G, Subclass 1 585 mg/dL (248-810); Immunoglobulin G, Subclass 2 334 mg/dL (130-555); Immunoglobulin G, Subclass 3 86 mg/dL (15-102); Immunoglobulin G, Subclass 4 19 mg/dL (2-96); Immunoglobulin M 78 mg/dL (26-217); PROEL- TOTAL PROTEIN 7.1 g/dL (6.0-8.5); Perinuclear Ab (P-ANCA) <1:20 titer (Neg:<1:20); t-Transglutaminase IgA <2 U/mL (0-3)
== END | disposition home or self-care (01) ==
LOC: LAB 16:26
PROVIDERS: PCP Internal Medicine; Referring Provider Internal Medicine Gastroenterology; Visit Provider Internal Medicine Gastroenterology
DX: D3A.8 Other benign neuroendocrine tumors (principal); D64.9 Anemia, unspecified
CPT/HCPCS: 36415; 82607; 82746; 82784; 82785; 82787; 82941; 83516; 83540; 84165; 86225; 86235; 86255; 86256; 86316; 86334; 86340

== ENCOUNTER → 2024-06-08 | Outpatient (CLI) | payer MEDICARE, SELFPAY ==
--- NOTE | 2024-06-08 12:50 | ECHOD_ITS ---
Reason For Study: AV Disorder Procedure This was a 2D Doppler, Color Flow transthoracic echocardiogram. Exam performed in department. Left Ventricle Normal LV size. Left ventricular systolic function is normal. The left ventricular ejection fraction is 60 %. Stage 1 diastolic dysfunction. No regional wall motion abnormalities noted. Right Ventricle Normal RV size. Normal systolic function. Atria Normal left atrium. Normal right atrium. Mitral Valve Normal mitral valve. Tricuspid Valve Normal tricuspid valve. Mild (1+) tricuspid valve insufficiency. Pulmonary artery systolic pressure is 42 mmHg. Aortic Valve Trisinus/trileaflet aortic valve. Mild focal aortic valve calcification. Mild (1+) aortic valve insufficiency. Pulmonic Valve Normal pulmonic valve. Great Vessels Normal aortic root. The pulmonary artery is normal size. Normal inferior vena cava. Pericardium/Pleural No pericardial effusion. MMode/2D Measurements & Calculations LVIDd: 4.4 cm IVSd: 1.0 cm Ao root diam: 3.2 cm LVIDs: 2.4 cm LVPWd: 0.84 cm LA dimension: 3.8 cm RVDd: 3.6 cm FS: 44.3 % LAV(MOD-bp): 47.5 ml LVAd ap4: 25.3 cm2 SV(MOD-sp4): 51.2 ml LAV(MOD-bp) Indexed: 26.4 ml/m2 LVLd ap4: 7.3 cm LAV(MOD-sp2): 42.3 ml EDV(MOD-sp4): 73.1 ml LAV(MOD-sp4): 49.8 ml EDV(sp4-el): 74.4 ml LVAs ap4: 12.2 cm2 LVLs ap4: 5.6 cm ESV(MOD-sp4): 21.9 ml ESV(sp4-el): 22.8 ml EF(MOD-sp4): 70.0 % EF(sp4-el): 69.4 % SV(sp4-el): 51.7 ml LA A4 area: 17.9 cm2 RA A4 area: 13.4 cm2 TAPSE: 2.7 cm Time Measurements MV dec time: 0.22 sec Doppler Measurements & Calculations MV E max reg: 94.6 cm/sec Lat Peak E' Reg: 12.9 cm/sec Med Peak E' Reg: 9.3 cm/sec MV A max reg: 102.0 cm/sec E/E' lat: 7.3 E/E' med: 10.2 MV E/A: 0.93 MV V2 max: 123.7 cm/sec MV P1/2t max reg: 94.4 cm/sec Ao V2 max: 185.6 cm/sec MV max P.1 mmHg MV P1/2t: 69.7 msec Ao max P.8 mmHg MV V2 mean: 61.2 cm/sec MV dec slope: 396.6 cm/sec2 Ao V2 mean: 125.2 cm/sec MV mean P.8 mmHg Ao mean P.1 mmHg MV V2 VTI: 36.6 cm MVA(P1/2t): 3.2 cm2 Ao V2 VTI: 42.1 cm AV (velocity ratio): 0.92 AI max reg: 414.6 cm/sec LV V1 max: 156.9 cm/sec PA V2 max: 119.4 cm/sec AI max P.0 mmHg LV V1 max P.9 mmHg PA max PG (full): 3.0 mmHg AI dec slope: 200.2 cm/sec2 LV V1 mean P.5 mmHg PA V2 mean: 86.6 cm/sec AI P1/2t: 606.5 msec LV V1 mean: 110.3 cm/sec PA mean PG (full): 1.5 mmHg LV V1 VTI: 38.8 cm PI dec slope: 176.9 cm/sec2 TR max reg: 308.5 cm/sec TR max P.1 mmHg ECHO/Echo Complete Interpretation Summary Normal LV size. Left ventricular systolic function is normal. The left ventricular ejection fraction is 60 %. Stage 1 diastolic dysfunction. Mild (1+) aortic valve insufficiency. Ordering Physician: Irish Bee Referring Physician: Irish Bee Performed By: Rod Gamez RCS
== END | disposition home or self-care (01) ==
LOC: CVS 12:49
PROVIDERS: PCP Internal Medicine; Referring Provider Internal Medicine; Visit Provider Internal Medicine
DX: I34.1 Nonrheumatic mitral (valve) prolapse (principal); I35.9 Nonrheumatic aortic valve disorder, unspecified
CPT/HCPCS: 93306

== ENCOUNTER 2024-06-17 05:27 | Day surgery (SDC) | payer MEDICARE, SELFPAY ==
[2024-06-17 06:03] VITALS: BP 179/87; PULSE 73; RESP 18; TEMP 36.9; O2SAT 99; BMI 35.7
[2024-06-17] MEDS: Lactated Ringers 1,000 ML 15 ML IV (06:07)
[2024-06-17 06:26] LABS: Bedside Glucose 125 mg/dL (74-106)
--- NOTE | 2024-06-17 06:30 | EGD_PTH ---
PATIENT: AG NORTON LOC: EN U#:[id number] AGE/SX: 73/F ROOM: RE06/17/[address]: Dr. Po Easton DO : 1950 BED: DIS: 06/17/2024 SPEC #: [id number] RECD: 06/17/24 09:22 STATUS: MATT ALEXANDRE #: [id number] GALILEO: 06/17/24 06:[address]: Po Easton DEPT: SURGICAL PATHOLOGY RECD BY: Portillo Littlejohn ENTERED: 06/17/24 11:41 SP TYPE: EGD BIOPSY MERCEDES DR: Dr. Irish Bee DO Tissues: Esophagus, NOS Procedures: Special Stain Group I Surgery Specimen Level IV Alcian Blue/PAS (control) HEADER OPERATION: EGD biopsy PRE-OP DIAGNOSIS: Neuroendocrine neoplasm of stomach TISSUE SUBMITTED: Distal esophagus MICROSCOPIC DIAGNOSIS Distal esophagus, biopsy: Gastroesophageal junctional mucosa with mild chronic inflammation. No evidence of goblet cell metaplasia. See comment. PAULINO/ 06/18/2024 COMMENT Alcian blue/PAS stain with matched control is used in the evaluation of the specimen. MICROSCOPIC DESCRIPTION Slides are reviewed. GROSS DESCRIPTION Received in fixative is one container labeled with the patient's name and designated Distal esophagus biopsy. The specimen consists of two irregular fragments of light yo soft tissue that in aggregate measure 0.7 x 0.3 x 0.1 cm. The specimen is totally submitted in one cassette. IZA/ 06/17/2024 TC:3 CPT:59236,86095
[2024-06-17 06:35] VITALS: BP 179/87; PULSE 73; RESP 18; TEMP 36.9; O2SAT 99
--- NOTE | 2024-06-17 06:35 | PRE.ANES_ITS ---
ASA Classification* ASA Classification ASA Classification: 3 Assessment & Plan Anesthesia* Anesthesia Assessment Anesthesia Assessment: Discussed sedation and/or anesthesia options, risks, benefits, and alternatives with patient/parents/legal guardian/POA. Questions invited. The patient/parents/legal guardian/POA seems to understand and agrees to proceed with anesthesia plan. Reviewed the physical assessment, medical history, allergy history and patient home medications list prior to surgery/procedure/anesthetic and documented any changes. Performed airway and anesthesia risk assessments. Anesthesia Type Anesthesia Type: MAC Anesthesia Focused Assessment* Temperature: 98.4 F Pulse Rate: 73 Blood Pressure: 179/87 Respiratory Rate: 18 Pulse Ox: 99 Airway Assessment Mouth opens: >3 cm Mallampati Score: II Focused Labs Anesthesia Preop lab: CBC WBC 10.1 K/mm3 (4.4-11.0) 03/01/24 16:20 RBC 4.37 M/mm3 (4.2-5.4) 03/01/24 16:20 Hgb 11.0 g/dL (12.0-15.0) L 03/01/24 16:20 Hct 36.6 % (37-47) L 03/01/24 16:20 Plt Count 365 K/mm3 (150-450) 03/01/24 16:20 CHEMISTRY Potassium 4.5 mmol/L (3.5-5.1) 03/01/24 16:20 Sodium 140 mmol/L (136-145) 03/01/24 16:20 Magnesium 2.0 mg/dL (1.6-2.6) 10/30/19 06:21 Phosphorus 3.2 mg/dL (2.5-4.9) 10/30/19 06:21 BUN 12 mg/dL (7-18) 03/01/24 16:20 Creatinine 0.65 mg/dL (0.55-1.02) 03/01/24 16:20 Glucose 96 mg/dL (74-106) 03/01/24 16:20 POC Glucose 125 mg/dL (74-106) H 06/17/24 05:49 TSH 1.50 uIU/mL (0.358-3.74) 10/29/19 11:20 COAG Pre-Assessment Diagnosis/Proposed Procedure Planned Operative Procedure(s): EGD Anesthesia History 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 When Was Last Pacemaker Check QUESTION #4 FULL TEXT: You/Your Family Experience fever (hyperthermia) with Anesthesia Last Oral Intake Last Oral intake: Last Oral Intake NPO since 18:00 06/17/24 06:03 Meds taken in AM with sips of water? Meds patient instructed to take am of surgery PONV PONV - mogul operator: PONV - mogul operator Female Yes 06/14/24 12:21 HX of Motion Sickness Yes 06/14/24 12:21 HX of N/V After Surgery Yes 06/14/24 12:21 Non-Smoker Yes 06/14/24 12:21 Duration of Surgery greater No 06/14/24 12:21 than 60 minutes Number of Risk Factors 4 06/14/24 12:21 PONV Score Severe Risk 06/14/24 12:21 Height & Weight Height & Weight: Anesthesia: Height & Weight Height 5 ft 06/17/24 06:03 Weight: 83 kg 06/17/24 06:03 Body Mass Index (BMI) 35.7 06/17/24 06:03 Respiratory Assessment Respiratory Assessment - mogul operator: Respiratory Tract Infection Hx - mogul operator Hx Respiratory Tract Infection No 06/14/24 12:21 STOP Sleep Apnea STOP Sleep Apnea - mogul operator: STOP Sleep Apnea - mogul operator Hx Hypertension Yes 06/14/24 12:21 Hx Sleep Apnea Yes 06/14/24 12:21 CPAP Yes 06/14/24 12:21 BIPAP No 06/14/24 12:21 Do you snore loudly (louder than talking or can be heard Do you often feel tired/ fatigued/ sleepy during daytime? Has anyone observed you stop breathing during sleep? STOP Results Positive 06/14/24 12:21 QUESTION #5 FULL TEXT : Do you snore loudly (louder than talking or can be heard through closed doors)? 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 Specify any problems Hx of Preganancy in last 3 N/A 06/14/24 12:21 Months Nurse Filling Out Transfusion [facility] 06/14/24 12:21 & Questions: Date: 06/14/24 06/14/24 12:21 Time: 12:23 06/14/24 12:21 Patient unable to answer at this time (ie. confused, unrespo /Reproduction History /Reproductive History - mogul operator: /Reproductive Hx- mogul operator Hx Now No 06/14/24 12:21 Gestational Age (in weeks): EDC: Hx Hx Para Hx Section SAB No 06/14/24 12:21 Active Medications Active Medications: Current Medications Generic Name Dose Route Start Last Admin Trade Name Freq PRN Reason Stop Dose Admin Lactated Ringer's 1,000 mls @ 15 mls/hr 06/17/24 05:30 06/17/24 06:07 IV 15 mls/hr .Q48H KAILYN Administration PFSH Medical History CHF (congestive heart failure) Low iron Fatty liver Restless legs Hoarseness Shortness of breath on exertion Leg cramps Wears glasses Diabetes Anemia High cholesterol Gastric reflux Non-smoker CPAP (continuous positive airway pressure) dependence Sleep apnea Asthma History of echocardiogram History of stress test Hypertension History of irregular heartbeat TIA (transient ischemic attack) History of trigger finger Hx of vertigo Acid reflux Home Medications ?Medication ?Instructions ?Recorded ?Last Taken ?Type calcium carbonate 600 mg-vitamin 1 tab PO DAILY@0800 11/18/15 10/28/19 History D3 20 mcg (800 unit) tablet (Caltrate with Vitamin D3) pravastatin 80 mg tablet 80 mg PO DAILY 11/18/15 04/06/24 History aspirin 81 mg tablet,delayed 81 mg PO DAILY@0800 10/29/19 10/28/19 History release cholecalciferol (vitamin D3) 50 4,000 unit PO DAILY 10/29/19 10/28/19 History mcg (2,000 unit) capsule ferrous sulfate 325 mg (65 mg 325 mg PO DAILY 10/29/19 10/28/19 History iron) tablet metformin 500 mg tablet,extended 1,000 mg PO BID 10/29/19 04/06/24 History release 24 hr metoprolol succinate 25 mg 25 mg PO DAILY heart 10/29/19 04/07/24 History tablet,extended release 24 hr pentoxifylline 400 mg 400 mg PO DAILY pad 10/29/19 04/06/24 History tablet,extended release sitagliptin phosphate 100 mg 100 mg PO DAILY 03/01/24 04/06/24 History tablet (Januvia) famotidine 20 mg tablet 20 mg PO DAILY PRN GERD 04/05/24 Unknown History losartan 100 mg tablet 100 mg PO DAILY 04/05/24 04/07/24 History metoprolol succinate 50 mg 50 mg PO DAILY 04/05/24 04/07/24 History tablet,extended release 24 hr pantoprazole 40 mg tablet,delayed 40 mg PO DAILY #30 TABLETS 05/03/24 Unknown Rx release rifaximin 550 mg tablet (Xifaxan) 550 mg PO TID 14 days #42 tabs 06/15/24 Unknown Rx Allergy/AdvReac Type Severity Reaction Status Date / Time No Known Allergies Allergy Verified 06/17/24 06:02 Surgical History History of cardiac catheterization Hx of bilateral cataract extraction History of total left knee replacement History of total right knee replacement H/O: hysterectomy Status post bilateral knee replacements Social History Smoking Status: Never smoker alcohol intake: never substance use type: does not use Review of Systems (Anesthesia) ROS Narrative System reviewed and no additional complaints, except as documented.
--- NOTE | 2024-06-17 06:45 | PCM.HP.BLA ---
History and Physical Date of Admission: 06/17/24 AG NORTON, is a 73 F who presents to the office today for initial consult. abd US 4.3.24 Mild hepatomegaly and fatty infiltration of the liver. Multiple gallstones. Mildly dilated common bile duct. I suspect a stone in the common bile duct. This measures 6 mm x 4 mm *BGI established 7.22.24 pt reports that she was referred by Dr Resendiz for a neuroendocrine tumor. pt reports occasional nausea and vomiting, diarrhea, and HB. Pt reports that she has difficulty swallowing dry foods. Pt continues with Pantoprazole. ROS Const Constitutional: Positive for fatigue; No fever(s) or weight change ENT ENT: Positive for difficulty swallowing Gastro GI: Positive for abdominal pain, bloating, diarrhea, heartburn, difficulty swallowing, excessive flatus, nausea/dyspepsia and vomiting; No belching, change in bowel habits, change in stool character, coffee ground emesis, constipation, cramping, feeling full early, incontinent of stools, Vomiting blood/hematemesis, Blood in stool, loose stools, Black,tarry stools, pain with swallowing or other Musc Musculoskeletal: Positive for leg pain at night; No joint pain Skin Skin: No yellowing of the eye or itchy eyes Psych Psychiatric: No anxiety and No depression Endo Endocrine: Positive for fatigue; No weight change Aller/Imm Allergy/Immunologic: No itchy eyes William/Lymp Hematologic/Lymphatic: No easy bleeding or easy bruising Exam Const General: cooperative and comfortable Nutritional Appearance: average body habitus and well nourished [facility] Head: normal to inspection Ears: hearing grossly normal bilaterally Nose: external nose normal Face and sinus: normal facial exam Mouth: oral mucosae normal Throat: posterior oropharynx normal Eyes General: appearance normal, both eyes and all related structures Neck Neck: normal visual inspection Chest Chest palpation & inspection: normal inspection of the chest and normal palpation of entire chest wall Resp Effort & Inspection: normal respiratory effort Auscultation: Bilateral: Clear to Auscultation Cardio Palpation: normal PMI Rate: regular rate Rhythm: regular rhythm GI Inspection: normal to inspection Auscultation: normal bowel sounds Percussion: normal to percussion Palpation: no hepatosplenomegaly Skin General: no rashes or lesions noted Neuro General: patient alert Extrem General: normal to inspection Psych Affect: normal affect Assessment and Plan Assessment and Plan (1) Neuroendocrine neoplasm of stomach: Status: Acute Plan: She has a type I neuroendocrine tumor. She does not have any signs or symptoms of carcinoid syndrome. 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 I suspect that she will also have concomitant B12 deficiency and iron deficiency. She will need to undergo removal of the neuroendocrine tumor. I do not think she needs any imaging such as PET scan at this time. Hopefully with removing the neuroendocrine tumor and reducing proton pump and intubation, checking for H. pylori her gastrin level will go down. There is a really low incidence of metastasis with very small low-grade neuroendocrine tumors. Depending on what the gastrin level does after removal we may have to run urine test and blood test. Orders: Orders Gastrin, Serum Today D3A.8 - Other benign neuroendocrine tumors Vitamin B12 Today D3A.8 - Other benign neuroendocrine tumors Folates, (Folic Acid) Today D3A.8 - Other benign neuroendocrine tumors Intrinsic Factor Ab Today D3A.8 - Other benign neuroendocrine tumors Anti-Parietal Cell AB, QN Today D3A.8 - Other benign neuroendocrine tumors Iron Today D3A.8 - Other benign neuroendocrine tumors, D64.9 - Anemia, unspecified Celiac AB,Comprehensive Today D3A.8 - Other benign neuroendocrine tumors I have examined the patient and the H&P has been reviewed. There are no clinical changes since date of exam.
[2024-06-17 07:00] VITALS: BP 117/53; BP 179/87; PULSE 82; RESP 16; TEMP 36.6; O2SAT 97
--- NOTE | 2024-06-17 07:04 | OP.EGD_ITS ---
Patient Name: Anay Coronel Procedure Date: 06/17/2024 6:27 AM Date of : 1950 Age: 73 Procedure: Upper GI endoscopy Indications: Epigastric abdominal pain, Heartburn Providers: Po Easton DO Referring MD: Irish Bee Medicines: Monitored Anesthesia Care Patient Profile: This is a 73 year old female. Refer to note in patient chart for documentation of history and physical. Patient has symptoms of chronic dyspepsia and chronic heartburn. Complications: No immediate complications. Procedure: Pre-Anesthesia Assessment: - Prior to the procedure, a History and Physical was performed, and patient medications and allergies were reviewed. The patient is competent. The risks and benefits of the procedure and the sedation options and risks were discussed with the patient. All questions were answered and informed consent was obtained. Patient identification and proposed procedure were verified by the physician in the pre-procedure area. Mental Status Examination: alert and oriented. Airway Examination: normal oropharyngeal airway and neck mobility. Respiratory Examination: clear to auscultation. CV Examination: normal. Prophylactic Antibiotics: The patient does not require prophylactic antibiotics. Prior Anticoagulants: The patient has taken no anticoagulant or antiplatelet agents. After reviewing the risks and benefits, the patient was deemed in satisfactory condition to undergo the procedure. The anesthesia plan was to use monitored anesthesia care (MAC). Immediately prior to administration of medications, the patient was re-assessed for adequacy to receive sedatives. The heart rate, respiratory rate, oxygen saturations, blood pressure, adequacy of pulmonary ventilation, and response to care were monitored throughout the procedure. The physical status of the patient was re-assessed after the procedure. After obtaining informed consent, the endoscope was passed under direct vision. Throughout the procedure, the patient's blood pressure, pulse, and oxygen saturations were monitored continuously. The gastroscope was introduced through the mouth, and advanced to the second part of duodenum. The upper GI endoscopy was accomplished without difficulty. The patient tolerated the procedure well. Scope In: 6:48:12 AM Scope Out: 6:54:29 AM Total Procedure Duration Time 0 hours 6 minutes 17 seconds Findings: The Z-line was irregular and was found 39 cm from the incisors. Biopsies were taken with a cold forceps for histology. Verification of patient identification for the specimen was done. Estimated blood loss was minimal. A small hiatal hernia was present. Localized prominent gastric folds were found in the cardia and in the gastric fundus. Biopsies were taken with a cold forceps for histology. Verification of patient identification for the specimen was done. Estimated blood loss was minimal. No gross lesions were noted in the first portion of the duodenum. Impression: - Z-line irregular, 39 cm from the incisors. Biopsied. - Small hiatal hernia. - Enlarged gastric folds. Biopsied. - No gross lesions in the first portion of the duodenum. Recommendation: - Discharge patient to home. - Resume previous diet. - Continue present medications. - Await pathology results. Procedure Code(s): --- Professional --- 59998, Esophagogastroduodenoscopy, flexible, transoral; with biopsy, single or multiple CPT copyright 2021 [employer]. All rights reserved. The codes documented in this report are preliminary and upon jewelry sales coordinator review may be revised to meet current compliance requirements. Po Easton DO 06/17/2024 7:03:58 AM This report has been signed electronically. Number of Addenda: 0 Note Initiated On: 06/17/2024 6:27 AM
--- NOTE | 2024-06-17 07:04 | PCM.POST.ANE ---
Anesthesia: Postop Eval I Current Vital Signs Temperature: 97.8 F Pulse Rate: 77 Blood Pressure: 117/53 Respiratory Rate: 16 Pulse Ox: 96 Oxygen Delivery Method: Room Air Assessment Airway patent: Yes Spontaneous unlabored respirations: Yes Mental status: Asleep nausea: No Vomiting: No Anesthesia Complication: No Fluid Hydration Crystalloid volume administer (ml): 400 Total IV fluid infused: 400 Progress Note Anesthesia document: Postop Eval 1 completed: Yes
[2024-06-17 07:05] VITALS: BP 117/53; BP 126/62; BP 179/87; PULSE 77; PULSE 82; RESP 16; TEMP 36.6; O2SAT 96; O2SAT 97
--- NOTE | 2024-06-17 07:05 | OP.CCLET_ITS ---
06/17/2024 Irish Bee [address] [place] [address] Re : Upper GI endoscopy procedure for Anay Homer Dear Dr. Bee This procedure was performed on June. My impressions and recommendations are as follows: Impressions : - Z-line irregular, 39 cm from the incisors. Biopsied. - Small hiatal hernia. - Enlarged gastric folds. Biopsied. - No gross lesions in the first portion of the duodenum. Recommendations : - Discharge patient to home. - Resume previous diet. - Continue present medications. - Await pathology results. My findings are described in the full procedure note, which is enclosed. If I can be of further assistance, please feel free to contact me at . Sincerely, Po Easton, 06/17/2024 7:03:58 AM This report has been signed electronically.
[2024-06-17 07:10] VITALS: BP 149/66; BP 179/87; PULSE 80; RESP 16; TEMP 36.6; O2SAT 96
[2024-06-17 07:32] VITALS: BP 179/87
--- NOTE | 2024-06-17 08:43 | PCM.POSTANE2 ---
Anesthesia Postop Eval I Sum Postop Eval Completion status Anesthesia document: Postop Eval 1 completed: Yes Anesthesia Postop Eval I Summary Anesthesia Postop Eval I Summary: Anesthesia Postop Eval I: Assessment Summary Airway patent Yes 06/17/24 07:05 [email or web address] Spontaneous unlabored Yes 06/17/24 07:05 [email or web address] respirations Mental status Asleep 06/17/24 07:05 [email or web address] nausea No 06/17/24 07:05 [email or web address] Vomiting No 06/17/24 07:05 [email or web address] Anesthesia Postop Eval I: Fluid Summary Crystalloid volume administer 400 06/17/24 07:05 [email or web address] (ml) Colloids volume administered ( ml) Blood Product volume administered (ml) Total IV fluid infused 400 06/17/24 07:05 [email or web address] Anesthesia Postop Eval I: Summary Notes Anesthesia Complication No 06/17/24 07:05 [email or web address] Anesthesia Complication Comment: Post-operative progress note Anesthesia: Postop Eval II Evaluation Mental status: Awake Pain Level: 0 nausea: No Vomiting: No
== END 2024-06-17 07:42 | disposition home or self-care (01) ==
LOC: EN 05:28 → AC 05:28
PROVIDERS: PCP Internal Medicine; Referring Provider Internal Medicine; Visit Provider Internal Medicine Gastroenterology
PROC: 0DJ08ZZ Inspection of Upper Intestinal Tract, Via Natural or Artificial Opening Endoscopic (ICD-10-PCS; CPT 43235; principal; 2024-06-17 06:25)
DX: C7A.8 Other malignant neuroendocrine tumors (principal); I50.9 Heart failure, unspecified; I11.0 Hypertensive heart disease with heart failure; E11.9 Type 2 diabetes mellitus without complications; R10.13 Epigastric pain; K44.9 Diaphragmatic hernia without obstruction or gangrene; K20.90 Esophagitis, unspecified without bleeding; J45.909 Unspecified asthma, uncomplicated; E78.00 Pure hypercholesterolemia, unspecified; Z79.82 Long term (current) use of aspirin; Z79.899 Other long term (current) drug therapy; Z79.84 Long term (current) use of oral hypoglycemic drugs; Z86.73 Personal history of transient ischemic attack (TIA), and cerebral infarction without residual deficits
CPT/HCPCS: 43239; 82962; 88305; 88312; J7120; J2405

== ENCOUNTER → 2024-09-23 | Outpatient (CLI) | payer MEDICARE, SELFPAY | END | disposition home or self-care (01) | LOC: CVS 06:22 | PROVIDERS: PCP Internal Medicine; Referring Provider Internal Medicine; Visit Provider Internal Medicine | DX: R07.89 Other chest pain (principal) | CPT/HCPCS: 78452; 93017; A9500; A4216 ==

== ENCOUNTER → 2024-11-26 | Outpatient (CLI) | payer MEDICARE, SELFPAY ==
[2024-11-29 17:07] LABS: Gastrin, Serum 462 pg/mL (0-115)
== END | disposition home or self-care (01) ==
PROVIDERS: PCP Internal Medicine; Referring Provider Internal Medicine Gastroenterology; Visit Provider Internal Medicine Gastroenterology
DX: R11.0 Nausea (principal)
CPT/HCPCS: 36415; 82941

== ENCOUNTER 2025-01-30 08:04 | Emergency (ER) | payer MEDICARE, SELFPAY ==
[2025-01-30 08:05] VITALS: BP 180/76; PULSE 97; RESP 20; TEMP 36.5; O2SAT 100
[2025-01-30 08:07] VITALS: BMI 35.9
--- NOTE | 2025-01-30 08:23 | CT_ITS ---
PROCEDURE: CT abdomen pelvis with IV contrast REASON FOR EXAM: Pain TECHNIQUE: Multiple contiguous axial images through the abdomen and pelvis were obtained after the administration of intravenous contrast. Two-dimensional coronal and sagittal reformatted images were reconstructed. Low-dose imaging technique was utilized. COMPARISON: None. FINDINGS: Lung bases are clear. Moderate hiatal hernia. Liver, spleen, pancreas and adrenal glands are intact. Distended gallbladder with a couple of punctate calculi. No secondary signs of acute cholecystitis. Mildly dilated common bile duct measuring 9 mm. Kidneys enhance symmetrically. No suspicious renal mass, calculi or hydronephrosis. Urinary bladder is intact. Uterus is absent. Moderate fecal retention. No bowel obstruction, focal bowel wall thickening or significant perienteric inflammation. Distal colonic diverticula. Appendix is not definitely visualized, however there are no significant inflammatory changes in the right lower quadrant. No pelvic free fluid. No free air. Calcified nonaneurysmal abdominal aorta. No suspicious adenopathy. Superficial soft tissues are within normal limits. No acute osseous abnormality. Degenerative changes of the spine and pubic symphysis. Levoscoliosis. CT/Abdomen/Pelvis W IV Cont ONLY IMPRESSION: 1. Mildly dilated common bile duct measuring 9 mm. Correlate with laboratory v alues and consider MRCP if indicated. 2. Distended gallbladder width minimal cholelithiasis. No secondary signs of a cute cholecystitis. 3. Moderate fecal retention. 4. Hiatal hernia. Reading Location: [facility]
--- NOTE | 2025-01-30 08:23 | EKG12_ITS ---
Test Reason : CP Blood Pressure : */* mmHG Vent. Rate : 80 BPM Atrial Rate : 80 BPM P-R Int : 136 ms QRS Dur : 84 ms QT Int : 394 ms P-R-T Axes : 57 57 49 degrees QTcB Int : 454 ms Normal sinus rhythm Normal ECG Confirmed by MARISSA LEVY, JUDAH ([id number]), film and video editor ARJUN LEONG ([id number]) on 01/31/2025 8:21:13 AM Referred By: Confirmed By: JUDAH ANN MD
--- NOTE | 2025-01-30 08:32 | EX.ED.GENINJ ---
HPI History of Present Illness Chief Complaint: Nausea/Vomiting/Diarrhea Narrative Narrative: Chief complaint and HPI: Nausea, vomiting, diarrhea. 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 Patient states yesterday she developed abdominal pain which caused her to go to bed early. Abdominal pain is crampy mostly located in the epigastrium. She states she then developed nausea, vomiting, diarrhea. Both nonbloody. Associated symptoms are weakness, chest discomfort, cough. Has not taken any of her medication yesterday. 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 She denies any fever, chills, congestion, dysuria. Review of systems: See HPI Medications: As listed on the chart Allergies: As listed on the chart PFSH: Per chart Vital signs: As listed on the chart. Reviewed. Physical exam: Gen: A&O x3, NAD Head: Normocephalic, atraumatic Eyes: No sclera icterus, conjunctiva clear, PERRL, EOMI ENT: Mildly dry mucous membranes Neck: Trachea midline, No JVD CV: RRR, no murmurs, no peripheral edema Resp: Lungs CTA BL, no w/r/c GI: Abd soft, non-distended, mildly tender to palpation in the epigastrium, no r/r/g : No CVA tenderness Musc: Full ROM, no deformity Skin: Warm, dry Neuro: Alert, oriented, grossly intact, sensation intact Psych: Cooperative, appropriate mood and affect [facility] Medical History CHF (congestive heart failure) Low iron Fatty liver Restless legs Hoarseness Shortness of breath on exertion Leg cramps Wears glasses Diabetes Anemia High cholesterol Gastric reflux Non-smoker CPAP (continuous positive airway pressure) dependence Sleep apnea Asthma History of echocardiogram History of stress test Hypertension History of irregular heartbeat TIA (transient ischemic attack) History of trigger finger Hx of vertigo Acid reflux Home Medications ?Medication ?Instructions ?Recorded ?Last Taken ?Type calcium 600 mg (as 1 tab PO DAILY@0800 11/18/15 10/28/19 History carbonate)-vitamin D3 20 mcg (800 unit) tablet (Caltrate with Vitamin D3) pravastatin 80 mg tablet 80 mg PO DAILY 11/18/15 04/06/24 History aspirin 81 mg tablet,delayed 81 mg PO DAILY@0800 10/29/19 10/28/19 History release cholecalciferol (vitamin D3) 50 4,000 unit PO DAILY 10/29/19 10/28/19 History mcg (2,000 unit) capsule ferrous sulfate 325 mg (65 mg 325 mg PO DAILY 10/29/19 10/28/19 History iron) tablet metformin 500 mg tablet,extended 1,000 mg PO BID 10/29/19 04/06/24 History release 24 hr metoprolol succinate 25 mg 25 mg PO DAILY heart 10/29/19 04/07/24 History tablet,extended release 24 hr pentoxifylline 400 mg 400 mg PO DAILY pad 10/29/19 04/06/24 History tablet,extended release sitagliptin phosphate 100 mg 100 mg PO DAILY 03/01/24 04/06/24 History tablet (Januvia) famotidine 20 mg tablet 20 mg PO DAILY PRN GERD 04/05/24 Unknown History losartan 100 mg tablet 100 mg PO DAILY 04/05/24 04/07/24 History metoprolol succinate 50 mg 50 mg PO DAILY 04/05/24 04/07/24 History tablet,extended release 24 hr pantoprazole 40 mg tablet,delayed 40 mg PO DAILY #30 TABLETS 05/03/24 Unknown Rx release fluticasone furoate 50 inhalation 09/06/24 Unknown History mcg-vilanterol 25 mcg/dose inhalation powder (Breo Ellipta) mecobalamin (vitamin B12) 10,000 mcg subcut QWEEK 09/06/24 Unknown History mcg solution for injection Allergy/AdvReac Type Severity Reaction Status Date / Time No Known Allergies Allergy Verified 06/17/24 06:02 Surgical History History of cardiac catheterization Hx of bilateral cataract extraction History of total left knee replacement History of total right knee replacement H/O: hysterectomy Status post bilateral knee replacements Social History Smoking Status: Never smoker alcohol intake: never substance use type: does not use EXAM Physical Exam Const Vital Signs: 01/30/25 08:05 01/30/25 09:25 01/30/25 11:00 Temperature 97.7 F L Temperature Source Temporal Pulse Rate 97 74 78 Respiratory Rate 20 H 18 16 Blood Pressure 180/76 H 117/90 H 137/89 H Blood Pressure Mean 110 99 105 Pulse Ox 100 100 98 Oxygen Delivery Method Room Air Room Air MDM MDM MDM Narrative Medical decision making narrative: 74-year-old female with past medical history of 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 Differential diagnosis includes but is not limited to viral illness, COVID-19 infection, influenza, gastroenteritis, pancreatitis, cholecystitis, UTI, pneumonia, ACS, DKA/HHS. Patient has not taken any of her medication today. Aspirin, Pepcid, NS bolus, morphine, Zofran ordered for symptoms. Laboratory workup ordered including chest x-ray and CT abdomen and pelvis. Glucose on arrival 177. EKG and chest x-ray reviewed see below. VBG without acidosis. pH 7.573, pCO2 19.8, bicarb 18.3. Patient has a mixed venous pH. CBC with leukocytosis of 17.3. Patient has baseline anemia. CMP relatively unremarkable except for hyperglycemia of 208. No significant electrolyte abnormality, no FIDEL, no transaminitis, lipase unremarkable. Beta hydroxybutyrate negative. Magnesium unremarkable. COVID, flu, RSV negative. UA negative for UTI but positive for ketones which is consistent with nausea, vomiting, mild dehydration. Troponin unremarkable x 2. CT abdomen pelvis shows mildly dilated common bile duct measuring 9 mm. Correlate with laboratory values. Distended gallbladder with minimal cholelithiasis. No secondary signs of acute cholecystitis. Moderate fecal retention. Hiatal hernia. On reevaluation, patient is not having any right upper quadrant abdominal pain. Her labs are not consistent with any biliary pathology. Her symptoms are consistent with more of a gastroenteritis. However given CT abdomen and pelvis findings, general surgery was consulted and I spoke with Dr. Smyth. He agrees that imaging, story, labs are not consistent with gallbladder or biliary pathology. Agrees with likely gastroenteritis. Patient was updated of all the results. No clear etiology for patient's leukocytosis however suspect viral nature. She was educated that she needs to drink plenty of fluids over the next several days. She confirmed understanding. She was able to tolerate p.o. intake without vomiting. Patient is stable to discharge home. Strict return precautions were given such as worsening abdominal pain, inability to eat or drink, fever, other concerning symptoms. She confirmed understanding the plan. Patient will be discharged home on Zofran. Follow-up with PCP. EKG: Interpreted by me/EM physician: EKG shows normal sinus rhythm without acute ischemic changes. Heart rate 80. Diagnostic: Interpreted by me/EM physician: Chest x-ray without pneumonia, effusion, cardiomegaly, pneumothorax Impression: 1. Nausea and vomiting 2. Diarrhea 3. Dehydration Lab Data Labs: Laboratory Results - last 24 hr 01/30/25 01/30/25 01/30/25 08:20 08:25 09:50 WBC 17.3 H RBC 4.54 Hgb 11.7 L Hct 36.5 L MCV 80.4 L MCH 25.8 L MCHC 32.1 RDW Std Deviation 49.5 H RDW Coeff of Jose Martin 17.1 H Plt Count 326 MPV 10.7 Immature Gran % (Auto) 0.500 Neut % (Auto) 94.2 H Lymph % (Auto) 3.2 L Placer % (Auto) 1.9 Eos % (Auto) 0.0 Baso % (Auto) 0.2 Absolute Neuts (auto) 16.3 H Absolute Lymphs (auto) 0.55 L Nucleated RBC % 0 Sodium 140 Potassium 3.9 Chloride 101 Carbon Dioxide 24.8 Anion Gap 14 BUN 16 Creatinine 0.63 L Estim Creat Clear Calc 58.03 Est GFR (MDRD) Non-Af 92 BUN/Creatinine Ratio 24.6 H Glucose 208 H Calcium 9.1 Magnesium 1.7 Total Bilirubin 0.39 AST 24 ALT 18 Alkaline Phosphatase 63 Troponin T High Sens 14 Troponin T Hi Sens 2 Hr Total Protein 8.2 Albumin 4.6 Globulin 3.6 Albumin/Globulin Ratio 1.3 Lipase 16 b-Hydroxybutyric mmol/L 0.4 Urine Color Yellow Urine Clarity Clear Urine pH 8.0 Ur Specific [place] 1.010 Urine Protein 15 H Urine Glucose (UA) Normal Urine Ketones 5 H Urine Occult Blood Negative Urine Nitrite Negative Urine Bilirubin Negative Urine Urobilinogen Normal Ur Leukocyte Esterase 25 H Urine RBC 0 SEEN Urine WBC 0-5 SEEN Ur Squamous Epith Cells 0-5 SEEN Urine Bacteria RARE Urine Mucus 0 SEEN POC Glucose 177 H 01/30/25 10:36 WBC RBC Hgb Hct MCV MCH MCHC RDW Std Deviation RDW Coeff of Jose Martin Plt Count MPV Immature Gran % (Auto) Neut % (Auto) Lymph % (Auto) Placer % (Auto) Eos % (Auto) Baso % (Auto) Absolute Neuts (auto) Absolute Lymphs (auto) Nucleated RBC % Sodium Potassium Chloride Carbon Dioxide Anion Gap BUN Creatinine Estim Creat Clear Calc Est GFR (MDRD) Non-Af BUN/Creatinine Ratio Glucose Calcium Magnesium Total Bilirubin AST ALT Alkaline Phosphatase Troponin T High Sens Troponin T Hi Sens 2 Hr 11 Total Protein Albumin Globulin Albumin/Globulin Ratio Lipase b-Hydroxybutyric mmol/L Urine Color Urine Clarity Urine pH Ur Specific [place] Urine Protein Urine Glucose (UA) Urine Ketones Urine Occult Blood Urine Nitrite Urine Bilirubin Urine Urobilinogen Ur Leukocyte Esterase Urine RBC Urine WBC Ur Squamous Epith Cells Urine Bacteria Urine Mucus POC Glucose ABG Data ABG results: ABG 01/30/25 08:37 Specimen Type BRIGETTE Sample Site Not entered VBG pH 7.57 H VBG pO2 51 H VBG HCO3 18 L VBG Total CO2 19 L VBG O2 Sat (Calc) 92 H VBG Base Excess -4 L POC Mix VBG pCO2 Pt Tmp 19.8 L O2 Delivery Device Not entered Radiography Diagnostic Testing: Clinical Impression(s) from Imaging Studies Abdomen/Pelvis CT 01/30/25 08:23 IMPRESSION: 1. Mildly dilated common bile duct measuring 9 mm. Correlate with laboratory values and consider MRCP if indicated. 2. Distended gallbladder width minimal cholelithiasis. No secondary signs of acute cholecystitis. 3. Moderate fecal retention. 4. Hiatal hernia. Reading Location: [facility] Chest X-Ray 01/30/25 09:18 IMPRESSION: No acute airspace abnormality. Reading Location: [facility] Discharge Plan Triage Chief Complaint: Nausea/Vomiting/Diarrhea ED Provider: Rod Patel Dx/Rx/DC Orders Prescriptions: No Action Januvia 100 mg tablet 100 mg PO DAILY mecobalamin (vitamin B12) 10,000 mcg recon soln subcut QWEEK Breo Ellipta 50-25 mcg/dose blister with device inhalation pravastatin 80 MG tablet 80 mg PO DAILY calcium carbonate-vitamin D3 [Caltrate with Vitamin D3] 1 TAB tablet 1 tab PO DAILY@0800 Patient Comments: supplement aspirin 81 MG tablet 81 mg PO DAILY@0800 pentoxifylline 400 MG tablet extended release 400 mg PO DAILY Patient Comments: TAKE 1 TABLET BY MOUTH EVERY DAY ferrous sulfate 325 MG tablet 325 mg PO DAILY metoprolol succinate 25 MG tablet extended release 24 hr 25 mg PO DAILY metformin 500 MG tablet extended release 24 hr 1,000 mg PO BID Patient Comments: TAKE 2 TABLETS BY MOUTH TWICE A DAY cholecalciferol (vitamin D3) 2,000 UNIT capsule 4,000 unit PO DAILY metoprolol succinate 50 mg tablet extended release 24 hr 50 mg PO DAILY losartan 100 mg tablet 100 mg PO DAILY famotidine 20 mg tablet 20 mg PO DAILY PRN (Reason: GERD) pantoprazole 40 mg tablet,delayed release (DR/EC) 40 mg PO DAILY Qty: 30 1RF Primary Care Provider: Irish Bee Referrals: Irish Bee DO [Primary Care Provider] - Print Language: Georgian
[2025-01-30] MEDS: 0.9% Normal Saline (1000mL) 1,000 ML 1000 ML IV (08:38)
[2025-01-30] MEDS: Famotidine 200 MG/20 ML MDV 20 MG in 0.9% Normal Saline (Pres. free 8 ML 300 MG IV (08:38)
[2025-01-30] MEDS: Aspirin 325 MG Tablet PO (08:39)
[2025-01-30] MEDS: Morphine 2 MG/ML Syringe IV (08:39)
[2025-01-30] MEDS: Ondansetron 4 MG/2 ML Vial IV (08:39)
[2025-01-30 08:40] LABS: Blood Gas Specimen Type VEN; O2 Delivery Device Not entered; SITE Not entered; VBG BASE EXCESS -4 mmol/L (-1.0-3.5); VBG Bicarbonate 18 mmol/L (22-26); VBG PO2 51 mmHg (25-40); VBG SO2 92 % (50-70); VBG TCO2 19 mmol/L (23-33); VBG pCO2 19.8 mmHg (41-51); VBG pH 7.57 (7.32-7.42)
[2025-01-30 08:41] LABS: Absolute Lymphocyte Count 0.55 X10^3/uL (0.83-4.51); Absolute Neutrophil Count 16.3 X10^3/uL (2.0-7.7); Basophil# 0.04 X10^3/uL; Basophil% 0.2 % (0-1); Hematocrit 36.5 % (37-47); Hemoglobin 11.7 g/dL (12.0-15.0); Lymphocyte # 0.55 X10^3/ul (0.83-4.51); Lymphocyte % 3.2 % (19-41); Mean Corp Hgb Conc 32.1 g/dL (32-36); Mean Corpuscular Hgb 25.8 pg (27.0-32.0); Mean Corpuscular Volume 80.4 fL (81-99); Mean Platelet Vol. 10.7 fl (6.2-12.0); Monocyte# 0.32 X10^3/uL; Monocyte% 1.9 % (0-10); NRBC Flagged by Analyzer 0 % (0-5); Neutrophil # 16.28 X10^3/uL (2.7-7.7); Neutrophil % 94.2 % (47-70); POSITIVE DIFFERENTIAL YES; Platelet Count 326 K/mm3 (150-450); RBC Distribution Width CV 17.1 % (11.6-14.6); RBC Distribution Width SD 49.5 fl (35.1-43.9); Red Blood Count 4.54 M/mm3 (4.2-5.4); White Blood Count 17.3 K/mm3 (4.4-11.0)
[2025-01-30 08:43] LABS: Bedside Glucose 177 mg/dL (74-106)
[2025-01-30 08:57] LABS: Differential Indicated SCAN CRITERIA MET
[2025-01-30 08:59] LABS: ALB/GLOB Ratio 1.3 RATIO (0.9-2.4); AST(SGOT) 24 U/L (<=31); Alanine Aminotransfer ALT/SGPT 18 U/L (<=34); Albumin, Serum 4.6 g/dL (3.4-4.8); Alkaline Phosphatase 63 U/L (35-104); Anion Gap 14 (5-15); BETA-HYDROXYBUTYRATE 0.4 mmol/L (0.0-0.3); BUN 16 mg/dL (4-19); BUN/Creat Ratio 24.6 RATIO (10-20); Calcium,Total 9.1 mg/dL (7.6-11.0); Carbon Dioxide 24.8 mmol/L (21.0-32.0); Chloride 101 mmol/L (98-108); Creatinine, Serum 0.63 mg/dL (0.70-1.20); EST Glomerular Filtration Rate 92 (>60); Estimated Creatinine Clearance 58.03 ml/min (50-250); Globulin 3.6 g/dL (2.2-4.2); Glucose 208 mg/dL (70-99); Lipase 16 U/L (13-75); Potassium 3.9 mmol/L (3.3-5.1); Protein, Total 8.2 g/dL (5.9-8.4); Sodium Level 140 mmol/L (133-145); Total Bilirubin 0.39 mg/dL (0.00-1.30)
[2025-01-30 09:13] LABS: Magnesium 1.7 mg/dL (1.5-2.2); Troponin T High Sensitivity 14 ng/L (<=14)
--- NOTE | 2025-01-30 09:18 | RAD_ITS ---
PROCEDURE: Chest radiographs REASON FOR EXAM: COUGH TECHNIQUE: Two views of the chest COMPARISON: 10/17/2022 FINDINGS: Cardiomediastinal silhouette is within normal limits. Lungs are clear. No sizable pneumothorax. Chronic left rib fractures. RAD/Chest PA and Lateral IMPRESSION: No acute airspace abnormality. Reading Location: [facility]
[2025-01-30 09:25] VITALS: BP 117/90; PULSE 74; RESP 18; O2SAT 100
[2025-01-30 09:55] LABS: Mucous, Urine 0 SEEN /hpf (<or=2+)
[2025-01-30 10:02] LABS: Color, Urine Yellow (Yellow); Glucose, Dipstick Normal (Normal); Ketone-Dipstick 5 mg/dl (Negative); Leukocyte Esterase-Dipstick 25 /ul (Negative); Nitrite-Dipstick Negative (Negative); Occult Blood-Urine Negative /ul (Negative); Protein-Dipstick 15 mg/dl (Negative); Urine Bilirubin Dipstick Negative (Negative); Urine Clarity Clear (Clear); Urine Urobilinogen Normal (Normal)
[2025-01-30 10:27] LABS: Bacteria RARE /hpf (None Seen); Red Blood Cells-Urine 0 SEEN /hpf (0-5); Squamous Epithelial Cells - UA 0-5 SEEN /hpf (5-10); White Blood Cells 0-5 SEEN /hpf (0-5)
[2025-01-30 11:00] VITALS: BP 137/89; PULSE 78; RESP 16; O2SAT 98
[2025-01-30 11:00] LABS: Troponin T High Sens 2 HR 11 ng/L (<=14)
[2025-01-30 11:58] VITALS: BP 137/89; PULSE 78; RESP 16; TEMP 36.8; O2SAT 98
== END 2025-01-30 12:01 | disposition home or self-care (01) ==
PROVIDERS: Emergency Provider Surgery; PCP Internal Medicine; Visit Provider Surgery
DX: R11.2 Nausea with vomiting, unspecified (principal); I11.0 Hypertensive heart disease with heart failure; I50.9 Heart failure, unspecified; E11.9 Type 2 diabetes mellitus without complications; Z90.710 Acquired absence of both cervix and uterus; E78.00 Pure hypercholesterolemia, unspecified; R19.7 Diarrhea, unspecified; Z86.73 Personal history of transient ischemic attack (TIA), and cerebral infarction without residual deficits; G47.30 Sleep apnea, unspecified; Z99.89 Dependence on other enabling machines and devices; Z79.899 Other long term (current) drug therapy; Z79.82 Long term (current) use of aspirin; Z79.84 Long term (current) use of oral hypoglycemic drugs; K21.9 Gastro-esophageal reflux disease without esophagitis; J45.909 Unspecified asthma, uncomplicated; Z79.51 Long term (current) use of inhaled steroids; E86.0 Dehydration; Z96.653 Presence of artificial knee joint, bilateral
CPT/HCPCS: 71046; 74177; 80053; 81001; 82010; 82803; 82962; 83690; 83735; 84484; 85025; 87631; 93005; 96365; 96375; 99284; Q9967; A4216; J2405

== ENCOUNTER 2025-01-31 19:56 | Emergency (ER) | payer MEDICARE, SELFPAY ==
[2025-01-31 19:56] VITALS: BP 199/72; BP 213/81; PULSE 76; PULSE 79; RESP 16; RESP 18; TEMP 36.6; O2SAT 97; O2SAT 99; BMI 33.7
[2025-01-31 20:32] LABS: Absolute Lymphocyte Count 1.55 X10^3/uL (0.83-4.51); Absolute Neutrophil Count 5.3 X10^3/uL (2.0-7.7); Basophil# 0.02 X10^3/uL; Basophil% 0.2 % (0-1); Eosinophil# 0.02 X10^3/uL; Eosinophils% 0.2 % (0-5); Hematocrit 38.1 % (37-47); Hemoglobin 11.9 g/dL (12.0-15.0); Lymphocyte # 1.55 X10^3/ul (0.83-4.51); Lymphocyte % 18.9 % (19-41); Mean Corp Hgb Conc 31.2 g/dL (32-36); Mean Corpuscular Hgb 25.1 pg (27.0-32.0); Mean Corpuscular Volume 80.4 fL (81-99); Mean Platelet Vol. 10.5 fl (6.2-12.0); Monocyte# 1.28 X10^3/uL; Monocyte% 15.6 % (0-10); NRBC Flagged by Analyzer 0 % (0-5); Neutrophil # 5.31 X10^3/uL (2.7-7.7); Neutrophil % 64.6 % (47-70); Platelet Count 351 K/mm3 (150-450); RBC Distribution Width CV 17.5 % (11.6-14.6); RBC Distribution Width SD 51.3 fl (35.1-43.9); Red Blood Count 4.74 M/mm3 (4.2-5.4); White Blood Count 8.2 K/mm3 (4.4-11.0)
[2025-01-31 21:11] LABS: ALB/GLOB Ratio 1.3 RATIO (0.9-2.4); AST(SGOT) 22 U/L (<=31); Alanine Aminotransfer ALT/SGPT 15 U/L (<=34); Albumin, Serum 4.3 g/dL (3.4-4.8); Alkaline Phosphatase 64 U/L (35-104); Anion Gap 14 (5-15); BUN 10 mg/dL (4-19); BUN/Creat Ratio 17.4 RATIO (10-20); Calcium,Total 9.4 mg/dL (7.6-11.0); Carbon Dioxide 22.8 mmol/L (21.0-32.0); Chloride 104 mmol/L (98-108); Creatinine, Serum 0.57 mg/dL (0.70-1.20); EST Glomerular Filtration Rate 95 (>60); Estimated Creatinine Clearance 58.63 ml/min (50-250); Globulin 3.4 g/dL (2.2-4.2); Glucose 119 mg/dL (70-99); Potassium 3.8 mmol/L (3.3-5.1); Protein, Total 7.6 g/dL (5.9-8.4); Sodium Level 141 mmol/L (133-145); Total Bilirubin 0.35 mg/dL (0.00-1.30)
[2025-01-31 21:15] LABS: Lipase 17 U/L (13-75)
[2025-01-31 21:56] VITALS: PULSE 61; RESP 18; O2SAT 97
--- NOTE | 2025-01-31 22:00 | EKG12_ITS ---
Test Reason : DYSRHYTHMIA Blood Pressure : */* mmHG Vent. Rate : 74 BPM Atrial Rate : 74 BPM P-R Int : 134 ms QRS Dur : 144 ms QT Int : 432 ms P-R-T Axes : 15 -19 94 degrees QTcB Int : 479 ms Normal sinus rhythm Left bundle branch block Abnormal ECG Confirmed by JUDAH ANN MD ([id number]), magazine editor ARJUN LEONG ([id number]) on 02/01/2025 8:21:20 AM Referred By: TL Confirmed By: JUDAH ANN MD
--- NOTE | 2025-01-31 22:15 | US_ITS ---
PROCEDURE: GALLBLADDER REASON FOR EXAM: RUQ PAIN COMPARISON: None FINDINGS: Liver: Liver is mildly echogenic. Query fatty infiltration Gallbladder: Small gallstones. No evidence of acute gallbladder disease. No sonographic Almanza's sign Common bile duct: Normal measuring 7 mm. Pancreas: Visualized portions are sonographically unremarkable. Visualized portions of the right kidney are unremarkable. No right upper quadrant ascites. Features suggesting hepatic steatosis. Small gallstones. No evidence of acute gallbladder disease. Reading Location: [id number]
--- NOTE | 2025-01-31 22:16 | ED.VIS.GI ---
HPI HPI - GI History of Present Illness Chief Complaint: Abd Pain Narrative Narrative: 74-year-old female past medical history of hypertension, hyperlipidemia, diabetes, presents with nausea and vomiting as well as diarrhea. Symptoms began on Friday, approximately 3 days ago. She was seen in the emergency department yesterday and had a workup including a CT scan. She states that her diarrhea has ceased, but today she was able to take her medications but is still having nausea and vomiting. Every time she put something on her stomach she will vomit. She must of vomited at least 5 times. No recent fevers. She states that she was sent home yesterday although they thought her gallbladder was inflamed. No recent fevers or chills. Her diarrhea has improved significantly, but she still has nausea and vomiting and is concerned about her epigastric pain as well. She does not take blood thinners, but did state that she vomited a dark brown substance. [facility] Medical History CHF (congestive heart failure) Low iron Fatty liver Restless legs Hoarseness Shortness of breath on exertion Leg cramps Wears glasses Diabetes Anemia High cholesterol Gastric reflux Non-smoker CPAP (continuous positive airway pressure) dependence Sleep apnea Asthma History of echocardiogram History of stress test Hypertension History of irregular heartbeat TIA (transient ischemic attack) History of trigger finger Hx of vertigo Acid reflux Home Medications ?Medication ?Instructions ?Recorded ?Last Taken ?Type calcium 600 mg (as 1 tab PO DAILY@0800 11/18/15 10/28/19 History carbonate)-vitamin D3 20 mcg (800 unit) tablet (Caltrate with Vitamin D3) pravastatin 80 mg tablet 80 mg PO DAILY 11/18/15 04/06/24 History aspirin 81 mg tablet,delayed 81 mg PO DAILY@0800 10/29/19 10/28/19 History release cholecalciferol (vitamin D3) 50 4,000 unit PO DAILY 10/29/19 10/28/19 History mcg (2,000 unit) capsule metformin 500 mg tablet,extended 1,000 mg PO BID 10/29/19 04/06/24 History release 24 hr metoprolol succinate 25 mg 75 mg PO DAILY heart 10/29/19 04/07/24 History tablet,extended release 24 hr pentoxifylline 400 mg 400 mg PO DAILY pad 10/29/19 04/06/24 History tablet,extended release sitagliptin phosphate 100 mg 100 mg PO DAILY 03/01/24 04/06/24 History tablet (Januvia) famotidine 20 mg tablet 20 mg PO DAILY PRN GERD 04/05/24 Unknown History losartan 100 mg tablet 100 mg PO DAILY 04/05/24 04/07/24 History pantoprazole 40 mg tablet,delayed 40 mg PO DAILY #30 TABLETS 05/03/24 Unknown Rx release fluticasone furoate 50 1 inh inhalation Q24H PRN ASTHMA 09/06/24 Unknown History mcg-vilanterol 25 mcg/dose inhalation powder (Breo Ellipta) mecobalamin (vitamin B12) 10,000 mcg subcut QWEEK 09/06/24 Unknown History mcg solution for injection ondansetron 4 mg disintegrating 4 mg PO Q8H PRN PRN Nausea #10 tabs 01/30/25 Unknown Rx tablet Allergy/AdvReac Type Severity Reaction Status Date / Time No Known Allergies Allergy Verified 01/31/25 19:57 Surgical History History of cardiac catheterization Hx of bilateral cataract extraction History of total left knee replacement History of total right knee replacement H/O: hysterectomy Status post bilateral knee replacements Social History Smoking Status: Never smoker alcohol intake: never substance use type: does not use ROS ROS ED ROS Narrative Constitutional: No fever, no chills. Cardiovascular: No chest pain. No palpitations. No pedal edema. Respiratory: No cough, no shortness of breath. Abdominal: Positive epigastric abdominal pain. Diarrhea-improved. Positive nausea and vomiting today, at least 5 episodes. Musculoskeletal: No myalgias. No arthralgias. Neurologic: No headaches. No dizziness. No lightheadedness. Psychiatric: No depression. No anxiety. EXAM Physical Exam Narrative Exam Narrative: Afebrile. Vital signs noted. Nontoxic-appearing. HEENT: Normocephalic. Atraumatic. PERRL, EOMI. Neck soft and supple. No point tenderness or step off. Cardiovascular: Regular rate and rhythm. No murmurs, rubs, or gallops appreciated. Respiratory: No tachypnea. Lungs clear to auscultation bilaterally. Gastrointestinal: Abdomen soft, mild tenderness in epigastrium. Negative Almanza sign. With normoactive bowel sounds. No rebound or guarding. Neurological: Awake. Alert. Nonfocal, nonlateralizing. Skin: No rash. Normal color. No pallor. Musculoskeletal: No pedal edema. Full range of motion extremities. Const Vital Signs: 01/31/25 19:56 01/31/25 19:56 01/31/25 21:56 Temperature 98 F Temperature Source Temporal Pulse Rate 76 79 61 Respiratory Rate 18 16 18 Blood Pressure 213/81 H 199/72 H Blood Pressure Mean 125 114 Pulse Ox 97 99 97 Oxygen Delivery Method Room Air Room Air Room Air 01/31/25 22:25 02/01/25 00:00 Temperature Temperature Source Pulse Rate 61 66 Respiratory Rate 18 18 Blood Pressure 193/59 H 138/51 H Blood Pressure Mean 103 80 Pulse Ox 96 96 Oxygen Delivery Method Room Air Room Air MDM MDM MDM Narrative Medical decision making narrative: Differential diagnosis includes but not limited to pancreatitis versus cholecystitis versus gastroenteritis. I have low suspicion for ACS. I reviewed her ED visit from yesterday. She was diagnosed with viral gastroenteritis. She also has hiatal hernia but she states that has not a large 1. She was diagnosed with gastroenteritis and nausea, and her CT did show distended common bile duct at 9 mm, but no inflammatory changes. She does have cholelithiasis. Repeat laboratories were drawn per protocol. I reviewed them and she has normal white count of 8.2 with hemoglobin stable 11.9, hematocrit 38.1. Platelet count 351. CMP is grossly unremarkable without significant change. Creatinine 0.57, AST ALT, and alk phos are normal. Lipase is also normal so I doubt pancreatitis. She will be given Zofran. I do not feel she needs IV fluids. However given her recent diagnosis of 9 mm common bile duct, ultrasound of the gallbladder will be obtained. I reviewed the radiology report of the gallbladder ultrasound. There are no signs of acute cholecystitis. She does have cholelithiasis with small gallstones. No pericholecystic fluid. Common bile duct normal at 7 mm. She has not had any vomiting here in the emergency department. I discussed with the patient and her daughter the fact that she stated that earlier she had vomited dark brown to black substance but that was only once in earlier. It was not continuous. I had discussed with her the possibility of GI bleeding and insertion of NG tube which she refused. As she has had vomiting that was not dark brown/coffee-ground or black, I do think that perhaps maybe she might of had a small [place] tear from vomiting that has resolved. EKG was obtained and interpreted by myself independently as normal sinus rhythm at 74 bpm without ectopy or acute ST changes. No STEMI. There is a left bundle branch block. I do not feel she needs a full cardiac workup because she had this the other day. Repeat blood pressure currently 138 systolic without intervention. At this point in time, she has antinausea medication at home. She has not had any vomiting here in the emergency department. She will start a clear liquid diet and advance as tolerated. Return instructions to the emergency department were reviewed. Disposition is discharged home in stable condition. History & Record Review Discussion w/independent historian: Patient and Family Lab Data Attestation: I reviewed the patient's lab results. Labs: Laboratory Results - last 24 hr 01/31/25 20:25 WBC 8.2 RBC 4.74 Hgb 11.9 L Hct 38.1 MCV 80.4 L MCH 25.1 L MCHC 31.2 L RDW Std Deviation 51.3 H RDW Coeff of Jose Martin 17.5 H Plt Count 351 MPV 10.5 Immature Gran % (Auto) 0.500 Neut % (Auto) 64.6 Lymph % (Auto) 18.9 L [place] % (Auto) 15.6 H Eos % (Auto) 0.2 Baso % (Auto) 0.2 Absolute Neuts (auto) 5.3 Absolute Lymphs (auto) 1.55 Nucleated RBC % 0 Sodium 141 Potassium 3.8 Chloride 104 Carbon Dioxide 22.8 Anion Gap 14 BUN 10 Creatinine 0.57 L Estim Creat Clear Calc 58.63 Est GFR (MDRD) Non-Af 95 BUN/Creatinine Ratio 17.4 Glucose 119 H Calcium 9.4 Total Bilirubin 0.35 AST 22 ALT 15 Alkaline Phosphatase 64 Total Protein 7.6 Albumin 4.3 Globulin 3.4 Albumin/Globulin Ratio 1.3 Lipase 17 Discharge Plan Triage Chief Complaint: Abd Pain ED Provider: Caden Lowe Dx/Rx/DC Orders Clinical Impression: Nausea and vomiting, Cholelithiasis Instructions: Gallstones Dc, ED Vomiting (Adult) Prescriptions: No Action Januvia 100 mg tablet 100 mg PO DAILY mecobalamin (vitamin B12) 10,000 mcg recon soln subcut QWEEK Breo Ellipta 50-25 mcg/dose blister with device 1 inh inhalation Q24H PRN (Reason: ASTHMA) pravastatin 80 MG tablet 80 mg PO DAILY calcium carbonate-vitamin D3 [Caltrate with Vitamin D3] 1 TAB tablet 1 tab PO DAILY@0800 Patient Comments: supplement aspirin 81 MG tablet 81 mg PO DAILY@0800 pentoxifylline 400 MG tablet extended release 400 mg PO DAILY Patient Comments: TAKE 1 TABLET BY MOUTH EVERY DAY metoprolol succinate 25 MG tablet extended release 24 hr 75 mg PO DAILY metformin 500 MG tablet extended release 24 hr 1,000 mg PO BID Patient Comments: TAKE 2 TABLETS BY MOUTH TWICE A DAY cholecalciferol (vitamin D3) 2,000 UNIT capsule 4,000 unit PO DAILY ondansetron 4 mg tablet,disintegrating 4 mg PO Q8H PRN PRN (Reason: Nausea) Qty: 10 0RF losartan 100 mg tablet 100 mg PO DAILY famotidine 20 mg tablet 20 mg PO DAILY PRN (Reason: GERD) pantoprazole 40 mg tablet,delayed release (DR/EC) 40 mg PO DAILY Qty: 30 1RF Primary Care Provider: Irish Bee Referrals: Irish Bee, [Primary Care Provider] - 3-5 Days if not improving Activity Restrictions/Additional Instructions: Start a clear liquid diet tomorrow morning and advance as tolerated. You may want to start [id number] medications like Pepcid or Prilosec/omeprazole. Take the antinausea medication that you have at home. Return with new or worsening symptoms. Print Language: Czech Disposition Disposition: Home, Self Care
[2025-01-31] MEDS: Ondansetron 4 MG/2 ML Vial IV (22:22)
[2025-01-31 22:25] VITALS: BP 193/59; PULSE 61; RESP 18; O2SAT 96
[2025-02-01] VITALS: BP 138/51; PULSE 66; RESP 18; O2SAT 96
[2025-02-01 00:33] VITALS: BP 138/51; PULSE 66; RESP 16; TEMP 36.7; O2SAT 96
== END 2025-02-01 00:34 | disposition home or self-care (01) ==
PROVIDERS: Emergency Provider Emergency Medicine; PCP Internal Medicine; Visit Provider Emergency Medicine
DX: R10.13 Epigastric pain (principal); I11.0 Hypertensive heart disease with heart failure; I50.9 Heart failure, unspecified; E11.9 Type 2 diabetes mellitus without complications; E78.00 Pure hypercholesterolemia, unspecified; K80.20 Calculus of gallbladder without cholecystitis without obstruction; Z86.73 Personal history of transient ischemic attack (TIA), and cerebral infarction without residual deficits; G47.30 Sleep apnea, unspecified; Z99.89 Dependence on other enabling machines and devices; Z79.899 Other long term (current) drug therapy; Z79.82 Long term (current) use of aspirin; Z79.84 Long term (current) use of oral hypoglycemic drugs; K21.9 Gastro-esophageal reflux disease without esophagitis; J45.909 Unspecified asthma, uncomplicated; Z79.51 Long term (current) use of inhaled steroids; Z98.41 Cataract extraction status, right eye; Z98.42 Cataract extraction status, left eye; Z96.653 Presence of artificial knee joint, bilateral; Z90.710 Acquired absence of both cervix and uterus; R11.2 Nausea with vomiting, unspecified
CPT/HCPCS: 76705; 80053; 83690; 85025; 93005; 96372; 96374; 99282; A4216; J2405

== ENCOUNTER → 2025-02-14 | Outpatient (CLI) | payer MEDICARE, SELFPAY | END | disposition home or self-care (01) | LOC: PAVLAB 14:05 | PROVIDERS: PCP Internal Medicine; Referring Provider Surgery; Visit Provider Surgery | DX: D3A.8 Other benign neuroendocrine tumors (principal) | CPT/HCPCS: 36415; 82941 ==

== ENCOUNTER → 2025-04-14 | Outpatient (CLI) | payer MEDICARE, SELFPAY ==
--- NOTE | 2025-04-14 10:47 | BI_ITS ---
EXAM: SCRN MAMM (CAD)W/MYA BILAT DATE: 04/14/2025 CLINICAL HISTORY: F, Age 74 y/o , BREAST CANCER SCREENING No family history. History of remote left excisional breast biopsy and bilateral stereotactic breast biopsies. BREAST CANCER RISK ASSESSMENT: Not assessed. TECHNIQUE: Bilateral screening digital breast tomosynthesis with 2D and 3D images. Computer aided detection. COMPARISON: Prior exam(s) dated April 13, 2024.. FINDINGS: TISSUE DENSITY: The breast tissue is composed of scattered area of fibroglandular density. Bilateral Breast Mammographic Findings: No significant masses, calcifications or other abnormalities are identified. Stable densely calcified left breast nodules and left axillary lymph nodes. A tissue clip marker is once again seen in the upper central portion of the left breast. No suspicious masses, areas of developing architectural distortion, or suspicious calcifications. There has been no significant interval change. BI/SCRN MAMM (CAD)W/MYA BILAT IMPRESSION: OVERALL FINAL ASSESSMENT: BIRADS 2 BENIGN FINDING RECOMMENDATION: Routine annual follow-up in 1 Year A letter with findings and recommendations will be mailed to the patient. Reading Location: [id number]
== END | disposition home or self-care (01) ==
LOC: OPBI 10:47
PROVIDERS: PCP Internal Medicine; Referring Provider Internal Medicine; Visit Provider Internal Medicine
DX: Z12.31 Encounter for screening mammogram for malignant neoplasm of breast (principal)
CPT/HCPCS: 77063; 77067

== ENCOUNTER → 2025-09-29 | Outpatient (CLI) | payer MEDICARE, SELFPAY ==
[2025-09-29 08:45] LABS: Mucous, Urine 0 SEEN /hpf (<or=2+); Red Blood Cells-Urine 0 SEEN /hpf (0-5)
[2025-09-29 10:29] LABS: Hematocrit 34.0 % (37-47); Hemoglobin 10.5 g/dL (12.0-15.0); Immature Granulocytes Count 0.030 X10^3/uL (0.0-0.0); Mean Corp Hgb Conc 30.9 g/dL (32-36); Mean Corpuscular Volume 79.4 fL (81-99); Mean Platelet Vol. 10.8 fl (6.2-12.0); NRBC Flagged by Analyzer 0 % (0-5); Platelet Count 354 K/mm3 (150-450); RBC Distribution Width CV 16.5 % (11.6-14.6); RBC Distribution Width SD 47.5 fl (35.1-43.9); Red Blood Count 4.28 M/mm3 (4.2-5.4); White Blood Count 6.5 K/mm3 (4.4-11.0)
[2025-09-29 10:39] LABS: Color, Urine Yellow (Yellow); Glucose, Dipstick Normal (Normal); Ketone-Dipstick Negative (Negative); Leukocyte Esterase-Dipstick 500 /ul (Negative); Nitrite-Dipstick Negative (Negative); Occult Blood-Urine Negative /ul (Negative); Protein-Dipstick Negative (Negative); Specific Gravity, Urine 1.015 (1.002-1.030); Urine Bilirubin Dipstick Negative (Negative)
[2025-09-29 10:44] LABS: Squamous Epithelial Cells - UA 0-5 SEEN /hpf (5-10)
[2025-09-29 11:22] LABS: AST(SGOT) 17 U/L (<=31); Alanine Aminotransfer ALT/SGPT 15 U/L (<=34); Albumin, Serum 4.2 g/dL (3.4-4.8); Alkaline Phosphatase 66 U/L (35-104); Anion Gap 12 (5-15); BUN 10 mg/dL (4-19); BUN/Creat Ratio 18.9 RATIO (10-20); Calcium,Total 9.4 mg/dL (7.6-11.0); Carbon Dioxide 25.7 mmol/L (21.0-32.0); Chloride 103 mmol/L (98-108); Cholesterol 174 mg/dL (<=200); Globulin 3.2 g/dL (2.2-4.2); Glucose 109 mg/dL (70-99); Low Density Lipoprotein Calc. 94 mg/dL; Potassium 4.3 mmol/L (3.3-5.1); Triglycerides 155 mg/dL; Very Low Density Lipoprotein 31 mg/dL (5-40); Vitamin B12 1231 pg/mL (180-914); cholesterol:hdl ratio screen 3.29
[2025-09-29 11:34] LABS: Creatinine, Urine (random) 59.10 mg/dL (28.00-217.00); Microalbumin,Random Urine 76.7 mg/L (<20 mg/L)
[2025-09-30 17:08] LABS: Folate, Hemolysate Test 330.0 ng/mL (Not Estab.); Folate, RBC (Hct) Test 34.6 % (34.0-46.6); Folates, RBC Test 954 ng/mL (>498)
== END | disposition home or self-care (01) ==
LOC: MTLAB 08:28
PROVIDERS: PCP Internal Medicine; Referring Provider Internal Medicine; Visit Provider Internal Medicine
DX: E11.9 Type 2 diabetes mellitus without complications (principal); E78.2 Mixed hyperlipidemia; E53.9 Vitamin B deficiency, unspecified
CPT/HCPCS: 36415; 80053; 80061; 81001; 82043; 82570; 82607; 82747; 84443; 85014; 85025

== ENCOUNTER → 2025-10-18 | Outpatient (CLI) | payer MEDICARE, SELFPAY ==
--- NOTE | 2025-10-18 10:11 | BD_ITS ---
PROCEDURE: DEXA BONE DENSITY STUDY 10/18/2025 REASON FOR EXAM: F, age 74 y/o . Postmenopausal. TECHNIQUE: Procedure Code: BDDBD Modality: DX Procedure: DEXA BONE DENSITY STUDY COMPARISON: October 07, 2023. FINDINGS: BMD and T-SCORES Lumbar spine: 0.825 g/cm2, T-score -2.0 Levels: L1 through L4 Change from prior: Loss of 4.5%. Left femoral neck: 0.656 g/cm2, T-score -1.7 Femoral neck comparison data not recommended for monitoring change. Left total hip: 0.827 g/cm2, T-score -0.9 Change from prior: Loss of 6.7%. Right femoral neck: 0.586 g/cm2, T-score -2.4 Femoral neck comparison data not recommended for monitoring change. Right total hip: 0.820 g/cm2, T-score -1.0 Change from prior: Loss of 10%. The World Health Organization has defined the following categories based on bone density: Normal bone density: T-score equal to or greater than -1.0 Osteopenia: T-score between -1.0 and -2.5 Osteoporosis: T-score equal to or less than -2.5 FRAX (or Comparable) Fracture Risk Assessment: 10 Year Probability of Fracture: Major Osteoporotic Fracture: 21% Hip Fracture: 5.8% (Note: FRAX is not to be reported in setting of normal range bone density, osteoporosis on DEXA, known history of osteoporosis, prior osteoporotic hip or vertebral fracture, or for any patient undergoing pharmacological treatment for bone loss.) The National Osteoporosis Foundation (NOF) recommends pharmacological treatment for patients with a FRAX 10-year risk of 3% or higher for a hip fracture, or 20% or higher for a major osteoporotic fracture, to prevent osteoporosis and reduce fracture risk. The patient does meet the pharmacological treatment recommendations for prevention of osteoporosis. BD/Dexa Bone Density Study IMPRESSION: OSTEOPENIA. Recommend follow-up as clinically warranted. Reading Location: [id number]
== END | disposition home or self-care (01) ==
LOC: OPBD 10:10
PROVIDERS: PCP Internal Medicine; Referring Provider Internal Medicine; Visit Provider Internal Medicine
DX: M81.0 Age-related osteoporosis without current pathological fracture (principal)
CPT/HCPCS: 77080